=== PATIENT | female | born 2000 | race Caucasian/White ===

== ENCOUNTER 2021-03-23 15:10 | Observation (INO) | payer SELFPAY ==
[2021-03-23] VITALS (9 sets, daily range): BP systolic 75–121; BP diastolic 64–81; PULSE 93–127; BMI 35.8
--- NOTE | 2021-03-23 16:29 | OBADM ---
This patient, Radha Payne, admitted to the OB room OB Post [facility] for observation. Patient/family oriented to hospital policies and general routines including ID bracelet, bed and alarms, visiting hours, pain management, procedures, bathroom and other care routines, personal items, smoking policy, room service/diet, and visiting hours. Patient/Family are encouraged to report perceived risks to care and to ask questions if they do not understand what they are told or what they should do. Pt. received from EMS via stretcher. Pt. reports she has had R. abdominal pain since approx. 929 this a.m. Denies vaginal bleeding, LOF, contractions, and does report movement.
[2021-03-23 17:02] LABS: Add Urine Microscopic? NO; Appearance Urine Clear (Clear); Bilirubin Urine Negative (Negative); Blood Urine Negative (Negative); Color Urine Yellow (Yellow); Glucose Urine UA Negative (Negative); Ketones Urine Negative (Negative); Leukocyte Esterase Ur Negative LEU/UL (Negative); Nitrate Urine Negative (Negative); Protein Urine Negative (Negative); Specific Grav Ur 1.009 (1.001-1.035); Urobilinogen Urine Negative mg/dL (<2.0)
--- NOTE | 2021-03-26 00:17 | P.PNOB_ITS ---
OB - Triage/Final Diagnosis Visit Information Reason for evaluation: threatened labor Comments/Additional reasons for admission: I have assessed the risk for this patient, Radha Mayberry Shawanda Payne, and determined that she would benefit from observation care. Evaluation Laboratory results: Laboratory Tests 03/23/21 16:07 Urine Color Yellow Urine Appearance Clear Urine pH 8.0 Ur Specific [place] 1.009 Urine Protein Negative Urine Glucose (UA) Negative Urine Ketones Negative Ur Blood (Man) Negative Urine Nitrate Negative Urine Bilirubin Negative Urine Urobilinogen Negative Leukocyte Esterase Rfl Negative
== END 2021-03-23 18:22 | disposition home or self-care (01) ==
PROVIDERS: Admitting Provider Obstetrics & Gynecology; PCP Physician Assistant; Visit Provider Obstetrics & Gynecology
DX: O47.1 False labor at or after 37 completed weeks of gestation (principal); Z3A.28 28 weeks gestation of pregnancy
CPT/HCPCS: 81003; G0378; G0379

== ENCOUNTER 2021-05-22 10:38 | Outpatient (CLI) | payer MEDICAID, SELFPAY ==
--- NOTE | ~2021-05-22 | US_ITS ---
EXAMINATION: US OB BPP wo non-stress DATE: 05/22/2021 12:09 INDICATION: Hypertension. Third trimester. TECHNIQUE: Real-time pelvic ultrasound was performed. COMPARISON: None. FINDINGS: There is a single living fetus in vertex presentation. The placenta is fundal and posterior. h eart rate is 145 beats per minute (bpm). Biophysical profile performed by the technologist: breathing (30 sec sustained breathing in 30 minutes): 2 out of 2 movement (3 gross body movements in 30 minutes): 2 out of 2 tone (one episode of flwftfw-hgmfzijih-eklsevr limb movement): 2 out of 2 Amniotic fluid pocket (2 cm): 2 out of 2 Total score: 8 out of 8 IMPRESSION: 1. Single living fetus in vertex presentation. 2. Biophysical profile 8 out of 8. Reviewed, dictated and finalized at location B.
[2021-05-22 15:53] VITALS: BP 127/98; PULSE 113
== END 2021-05-22 10:39 | disposition home or self-care (01) ==
LOC: ANHOBOP 11:04
PROVIDERS: PCP Physician Assistant; Visit Provider Obstetrics & Gynecology
DX: O13.9 Gestational [pregnancy-induced] hypertension without significant proteinuria, unspecified trimester (principal); Z3A.00 Weeks of gestation of pregnancy not specified
CPT/HCPCS: 59025; 76819

== ENCOUNTER 2021-05-23 14:10 | Outpatient (CLI) | payer SELFPAY ==
[2021-05-23 14:31] VITALS: BP 131/91; PULSE 116
[2021-05-23 14:46] VITALS: BP 137/85; PULSE 109
[2021-05-23 14:52] LABS: Basophils Percent Auto 0.3 % (0.2-1.2); Eosinophils Absolute Auto 0.4 K/mm3 (0-0.3); Eosinophils Percent Auto 3.2 % (0-4.4); Hematocrit 33.9 % (37.0-47.0); Hemoglobin 11.5 g/dL (12.0-15.0); Immature Granulocyte Absolute 0.06 K/mm3 (0.00-0.031); Immature Granulocyte Percent A 0.5 % (0-0.5); Lymphocytes Percent Auto 18.8 % (18.3-44.2); Mean Corpuscular HGB Conc 33.9 g/dl (32-36); Mean Corpuscular Hemoglobin 32.6 pg (26-34); Mean Platelet Volume 10.6 fl (7.4-10.4); Monocytes Absolute Auto 0.8 K/mm3 (0.1-0.6); Monocytes Percent Auto 7.1 % (2.6-8.5); Neutrophils Absolute Auto 8.2 K/mm3 (1.3-6.7); Neutrophils Percent Auto 70.1 % (45.5-73.1); Platelet Count Result 273 k/mm3 (150-375); Red Blood Count 3.53 M/mm3 (4.2-5.4); Red Cell Distribution Width 12.1 % (11.5-14.5); White Blood Count 11.7 K/mm3 (4.5-10.0)
[2021-05-23 15:01] VITALS: BP 135/87; PULSE 107
[2021-05-23 15:06] LABS: Add Urine Microscopic? YES; Appearance Urine Cloudy (Clear); Bacteria Urine Trace /hpf; Bilirubin Urine Negative (Negative); Blood Urine Negative (Negative); Color Urine Yellow (Yellow); Glucose Urine UA Negative (Negative); Ketones Urine Negative (Negative); Leukocyte Esterase Ur Trace LEU/UL (NEGATIVE); Mucus Urine Rare /lpf; Nitrate Urine Negative (Negative); Protein Urine 1+ mg/dL (Negative); RBC Urine 0-2 /hpf (0-2); Specific Grav Ur 1.011 (1.001-1.035); Squamous Epithelial Cell Urine Many /hpf (Few); Urobilinogen Urine Negative mg/dL (<2.0)
[2021-05-23 15:09] LABS: Alanine Aminotransferase 34 U/L (4-35); Albumin Level 3.7 g/dL (3.7-5.6); Alkaline Phosphatase 208 U/L (45-116); Anion Gap 8 mmol/L (8-16); Aspartate Amino Transferase 31 U/L (14-36); Bilirubin,Total 0.5 mg/dL (0.2-1.3); Blood Urea Nitrogen 4 mg/dL (8-21); Calcium 9.6 mg/dL (8.9-10.7); Carbon Dioxide 20 mmol/L (22-30); Chloride 103 mmol/L (98-107); Estimated Glomerular Filt Rate > 60; Glucose 94 mg/dL (65-110); Potassium 4.1 mmol/L (3.4-5.0); Sodium 131 mmol/L (134-143); Uric Acid 4.2 mg/dL (3.0-5.9)
[2021-05-23 15:16] VITALS: BP 140/96; PULSE 100
[2021-05-23 15:16] LABS: Creatinine Urine 96.4 mg/dL; Total Protein Urine Random 24 mg/dL; Ur Ttl Prot Creatinine Ratio 0.25 mg/mg (0-0.20)
[2021-05-23 15:31] VITALS: BP 135/89; PULSE 107
--- NOTE | 2021-05-23 15:46 | PC.NURSE ---
1526- Called Dr. Brito office to speak with him regarding labs and BP's. Nany told me that Dr. Win is out of the office and she could take report on the patients labs and BP's. I was then transferred to Lalit Ford to speak with her about the patient. Informed her of labd and BP's, she gave orders to discharge the patient, i informed her that I would have to call Dr. López who is nutritionalist for Dr. Win.
--- NOTE | 2021-05-23 15:48 | PC.NURSE ---
1530- Spoke with Dr. López, informed of patient admission and BP's and Labs. Orders received for NST/BPP and repeat H labs to be drawn on Saturday05/26/2021. Dr. Garzon will be covering Dr. Win that day and she is aware of patient.
== END 2021-05-23 15:45 | disposition home or self-care (01) ==
LOC: ANHOBOP 14:15 → ANHOBPP 14:16
PROVIDERS: PCP Physician Assistant; Visit Provider Obstetrics & Gynecology
DX: O13.9 Gestational [pregnancy-induced] hypertension without significant proteinuria, unspecified trimester (principal); Z3A.00 Weeks of gestation of pregnancy not specified
CPT/HCPCS: 36415; 59025; 80053; 81001; 82570; 84156; 84550; 85025; 87086; 87088; 99199

== ENCOUNTER 2021-05-26 09:57 | Outpatient (CLI) | payer MEDICAID, SELFPAY ==
--- NOTE | ~2021-05-26 | US_ITS ---
EXAMINATION: US OB BPP wo non-stress DATE: 05/26/2021 11:18 INDICATION: Hypertension in . Third trimester. TECHNIQUE: Real-time pelvic ultrasound was performed. COMPARISON: Ultrasound 05/22/2021 FINDINGS: There is a single living fetus in vertex presentation. The placenta is on the left. heart rate is 124 beats per minute (bpm). Biophysical profile performed by the technologist: breathing (30 sec sustained breathing in 30 minutes): 2 out of 2 movement (3 gross body movements in 30 minutes): 2 out of 2 tone (one episode of senxdtt-fvhsvrxdy-cnwzpwr limb movement): 2 out of 2 Amniotic fluid pocket (2 cm): 2 out of 2 Total score: 8 out of 8 IMPRESSION: 1. Single living fetus in vertex presentation. 2. Biophysical profile 8 out of 8. Reviewed, dictated and finalized at location B.
[2021-05-26 10:18] VITALS: BP 128/92; PULSE 100
[2021-05-26 10:30] VITALS: BP 130/101; PULSE 89
[2021-05-26 10:45] VITALS: BP 124/65; PULSE 89
[2021-05-26 10:46] VITALS: BP 124/65; PULSE 89
[2021-05-26 10:52] LABS: Basophils Percent Auto 0.4 % (0.2-1.2); Eosinophils Absolute Auto 0.4 K/mm3 (0-0.3); Eosinophils Percent Auto 3.3 % (0-4.4); Hematocrit 34.2 % (37.0-47.0); Hemoglobin 11.1 g/dL (12.0-15.0); Immature Granulocyte Absolute 0.05 K/mm3 (0.00-0.031); Immature Granulocyte Percent A 0.5 % (0-0.5); Lymphocytes Percent Auto 20.9 % (18.3-44.2); Mean Corpuscular HGB Conc 32.5 g/dl (32-36); Mean Corpuscular Volume 98.6 fl (80-100); Monocytes Absolute Auto 0.7 K/mm3 (0.1-0.6); Monocytes Percent Auto 6.9 % (2.6-8.5); Neutrophils Absolute Auto 7.2 K/mm3 (1.3-6.7); Platelet Count Result 238 k/mm3 (150-375); Red Blood Count 3.47 M/mm3 (4.2-5.4); Red Cell Distribution Width 12.1 % (11.5-14.5); White Blood Count 10.5 K/mm3 (4.5-10.0)
[2021-05-26 11:05] LABS: Alanine Aminotransferase 43 U/L (4-35); Albumin Level 3.5 g/dL (3.7-5.6); Alkaline Phosphatase 210 U/L (45-116); Anion Gap 7 mmol/L (8-16); Aspartate Amino Transferase 48 U/L (14-36); Bilirubin,Total 0.6 mg/dL (0.2-1.3); Blood Urea Nitrogen 5 mg/dL (8-21); Calcium 9.8 mg/dL (8.9-10.7); Carbon Dioxide 22 mmol/L (22-30); Chloride 103 mmol/L (98-107); Estimated Glomerular Filt Rate > 60; Glucose 81 mg/dL (65-110); Potassium 3.9 mmol/L (3.4-5.0); Sodium 132 mmol/L (134-143); Uric Acid 4.1 mg/dL (3.0-5.9)
[2021-05-26 11:08] LABS: Creatinine Urine 84.2 mg/dL; Total Protein Urine Random 20 mg/dL; Ur Ttl Prot Creatinine Ratio 0.24 mg/mg (0-0.20)
--- NOTE | 2021-05-26 11:28 | PC.NURSE ---
Dr. López informed of BP's 128/92, 130/101 after entering room with lab draw tray- pt states she doesn't like needles, and follow up BP 124/65. Informed of lab results including elevation in ALT and AST. Pt denies headache, visual disturbance, epigastric/RUQ pain, some swelling in feet which pt states is less than it was, and DTR's 1+ and no clonus. Informed NST reactive and BPP 05/14. OK to discharge to home with preeclampsia precautions and return Saturday for repeat NST, BPP, and labs.
== END 2021-05-26 13:00 | disposition home or self-care (01) ==
LOC: ANHOBOP 10:03 → ANHOBPP 10:04
PROVIDERS: Obstetrics & Gynecology; PCP Physician Assistant; Visit Provider Obstetrics & Gynecology
DX: O13.9 Gestational [pregnancy-induced] hypertension without significant proteinuria, unspecified trimester (principal); Z3A.00 Weeks of gestation of pregnancy not specified
CPT/HCPCS: 36415; 76819; 80053; 82570; 84156; 84550; 85025; 99199

== ENCOUNTER 2021-05-30 10:09 | Outpatient (CLI) | payer MEDICAID, SELFPAY ==
--- NOTE | ~2021-05-30 | US_ITS ---
EXAMINATION: US OB BPP wo non-stress DATE: 05/30/2021 11:34 INDICATION: Hypertension during third trimester . TECHNIQUE: Real-time pelvic ultrasound was performed. The interpreting radiologist was not present fo r the study. COMPARISON: None. FINDINGS: There is a single living fetus in vertex presentation. The placenta is fundal. heart rate is 1 45 beats per minute (bpm). Biophysical profile performed by the technologist: breathing (30 sec sustained breathing in 30 minutes): 0 out of 2 movement (3 gross body movements in 30 minutes): 2 out of 2 tone (one episode of dciwhau-heonuahdd-eobnlea limb movement): 2 out of 2 Amniotic fluid pocket (2 cm): 2 out of 2 Total score: 6 out of 8 IMPRESSION: 1. Single living fetus in vertex presentation with heart rate of 145 bpm. 2. Biophysical profile 6 out of 8 with no points given for 30 seconds of observed sustained br eathing over 30 minutes of observation. Reviewed, dictated and finalized at location B. IMPRESSION: 1. Single living fetus in vertex presentation with heart rate of 145 bpm. 2. Biophysical profile 6 out of 8 with no points given for 30 seconds of obser patricia sustained breathing over 30 minutes of observation.
[2021-05-30 10:31] VITALS: BP 129/84; PULSE 93
[2021-05-30 10:37] LABS: Basophils Absolute Auto 0.1 K/mm3 (0.0-0.1); Basophils Percent Auto 0.5 % (0.2-1.2); Eosinophils Absolute Auto 0.4 K/mm3 (0-0.3); Eosinophils Percent Auto 3.4 % (0-4.4); Hematocrit 33.3 % (37.0-47.0); Immature Granulocyte Absolute 0.05 K/mm3 (0.00-0.031); Immature Granulocyte Percent A 0.4 % (0-0.5); Lymphocytes Absolute Auto 2.65 K/mm3 (0.9-3.2); Lymphocytes Percent Auto 22.8 % (18.3-44.2); Mean Corpuscular Volume 96.8 fl (80-100); Mean Platelet Volume 11.2 fl (7.4-10.4); Monocytes Absolute Auto 0.9 K/mm3 (0.1-0.6); Monocytes Percent Auto 7.8 % (2.6-8.5); Neutrophils Absolute Auto 7.6 K/mm3 (1.3-6.7); Neutrophils Percent Auto 65.1 % (45.5-73.1); Platelet Count Result 258 k/mm3 (150-375); Red Blood Count 3.44 M/mm3 (4.2-5.4); White Blood Count 11.6 K/mm3 (4.5-10.0)
[2021-05-30 10:46] VITALS: BP 131/84; PULSE 103
[2021-05-30 10:49] VITALS: BP 131/84; PULSE 106
[2021-05-30 10:50] LABS: Creatinine Urine 58.1 mg/dL; Total Protein Urine Random 30 mg/dL; Ur Ttl Prot Creatinine Ratio 0.52 mg/mg (0-0.20)
[2021-05-30 10:55] LABS: Alanine Aminotransferase 31 U/L (4-35); Albumin Level 3.6 g/dL (3.7-5.6); Alkaline Phosphatase 212 U/L (45-116); Anion Gap 8 mmol/L (8-16); Aspartate Amino Transferase 30 U/L (14-36); Bilirubin,Total 0.5 mg/dL (0.2-1.3); Blood Urea Nitrogen 5 mg/dL (8-21); Calcium 9.8 mg/dL (8.9-10.7); Carbon Dioxide 20 mmol/L (22-30); Chloride 103 mmol/L (98-107); Estimated Glomerular Filt Rate > 60; Glucose 92 mg/dL (65-110); Sodium 131 mmol/L (134-143); Uric Acid 3.7 mg/dL (3.0-5.9)
== END 2021-05-30 11:40 | disposition home or self-care (01) ==
LOC: ANHOBOP 10:14 → ANHLDR 10:16
PROVIDERS: Obstetrics & Gynecology; PCP Physician Assistant; Visit Provider Obstetrics & Gynecology
DX: O13.9 Gestational [pregnancy-induced] hypertension without significant proteinuria, unspecified trimester (principal)
CPT/HCPCS: 36415; 59025; 76819; 80053; 82570; 84156; 84550; 85025; 99199

== ENCOUNTER 2021-06-02 07:03 | Inpatient (IN) | payer MEDICAID, SELFPAY ==
[2021-06-02] VITALS (54 sets, daily range): BP systolic 111–146; BP diastolic 57–99; PULSE 62–111; RESP 16; TEMP 36.3–36.8; O2SAT 96–100; BMI 39.9
--- NOTE | 2021-06-02 07:44 | LDADM ---
This patient, Radha Payne, was admitted to Labor/Delivery/Recovery 119 on 06/02/21 at 07:03. Plans for labor, pain management and were discussed with patient. Patient/family oriented to hospital policies and general routines including ID bracelet, bed and alarms, visiting hours, pain management, procedures, bathroom and other care routines, personal items, smoking policy, room service/diet and guest tray routines, infant security routines, and visiting hours. Patient/Family are encouraged to report perceived risks to care and to ask questions if they do not understand what they are told or what they should do. See OBIX for further documentation.
[2021-06-02] MEDS: LACTATED RINGERS 1,000 ML 125 ML IV CONT ×2 (07:50→09:38)
[2021-06-02 07:54] LABS: Basophils Percent Auto 0.3 % (0.2-1.2); Eosinophils Absolute Auto 0.3 K/mm3 (0-0.3); Eosinophils Percent Auto 2.6 % (0-4.4); Hematocrit 33.6 % (37.0-47.0); Hemoglobin 11.4 g/dL (12.0-15.0); Immature Granulocyte Absolute 0.09 K/mm3 (0.00-0.031); Immature Granulocyte Percent A 0.8 % (0-0.5); Lymphocytes Absolute Auto 2.27 K/mm3 (0.9-3.2); Lymphocytes Percent Auto 19.4 % (18.3-44.2); Mean Corpuscular HGB Conc 33.9 g/dl (32-36); Mean Corpuscular Hemoglobin 32.2 pg (26-34); Mean Corpuscular Volume 94.9 fl (80-100); Mean Platelet Volume 10.9 fl (7.4-10.4); Monocytes Absolute Auto 0.8 K/mm3 (0.1-0.6); Monocytes Percent Auto 7.2 % (2.6-8.5); Neutrophils Absolute Auto 8.2 K/mm3 (1.3-6.7); Neutrophils Percent Auto 69.7 % (45.5-73.1); Platelet Count Result 249 k/mm3 (150-375); Red Blood Count 3.54 M/mm3 (4.2-5.4); Red Cell Distribution Width 11.9 % (11.5-14.5); White Blood Count 11.7 K/mm3 (4.5-10.0)
--- NOTE | 2021-06-02 07:57 | P.PNAN_ITS ---
Anes - Initial Pre Proc Eval Procedure: Operation Date: 06/02/21 09:00 Proposed Procedures p Section - Carroll Win MD Date/Time: 06/02/21 07:57 Surgeon: Carroll Win MD Pre Op Diagnosis: C/S Patient Data Age: 20 Gender: F Height: 1.55 m Weight: 96 kg Last Vital Signs Pulse 88 06/02/21 07:46 BP 139/95 H 06/02/21 07:46 Allergies Allergy/AdvReac Type Severity Reaction Status Date / Time No Known Allergies Allergy Verified 05/11/21 13:21 Home Medications Medication Instructions Recorded Confirmed Type 1 tablet PO DAILY 03/23/21 05/23/21 History aspirin 81 mg PO DAILY 03/23/21 06/02/21 History folic acid 1 mg PO DAILY 03/23/21 06/02/21 History progesterone micronized 200 mg PO DAILY 03/23/21 05/23/21 History Laboratory Tests 06/02/21 06/02/21 07:37 07:37 WBC Pending RBC Pending Hgb Pending Hct Pending MCV Pending MCH Pending MCHC Pending RDW Pending Plt Count Pending MPV Pending Immature Gran % (Auto) Pending Neut % (Auto) Pending Lymph % (Auto) Pending [place] % (Auto) Pending Eos % (Auto) Pending Baso % (Auto) Pending Lymph # (Auto) Pending [place] # (Auto) Pending Eos # (Auto) Pending Baso # (Auto) Pending Abs Immat Gran (auto) Pending Absolute Neuts (auto) Pending Absolute Nucleated RBC Pending Nucleated RBC % Pending RPR Pending Patient hx anesthesia problems: none Family hx anesthesia problems: none PMFSH Family History Family History (Updated 05/11/21 @ 13:23 by Giuseppe Jo RN) Other No pertinent family history Social History Social History Smoking status: Never smoker Substance use: never Gender identity (if verbalized by the patient): Female Spiritual care concerns: No Anes - Eval Final PreProcedure Day of Procedure 06/02/21 07:57 Patient weight: morbidly obese Heart: regular rate and rhythm Lungs: clear to auscultation and normal air movement Airway: Mallampati scale class II Neurological: alert and oriented Last oral intake: >/= 8 hours ASA classification: III Emergent: no Anesthetic plan: proceed Anesthesia type and monitoring: regional spinal and standard monitoring Informed Consent: The patient's anesthetic plan and its attendant risks and benefits were discussed with the patient/family/POA. Questions were solicited and answers provided to the satisfaction of the patient/family/POA.
--- NOTE | 2021-06-02 08:54 | PM.IMHP ---
H&P: HPI History of Present Illness Date/Time: 06/02/21 08:54 20 y/o F presenting for primary elective for macrosomia estimated weight greater than 4500 g currently at 39w. c/b MTHFR, BV, rubella and varicella not immune, anxiety, large for gestational age fetus, PIH. Seeing MFM for LGAF, US performed on 05/15/21 revealed estimated weight greater than 4300 g Pt had NST/BPP on 05/22 I explained her condition the procedure and the risks involved including but not limited to bleeding infection injury to bladder bowel baby pelvic vessels DVT pneumonia wound infection UTI the risk of anesthesia risk of hemorrhage shoulder dystocia. She understands accepts and agrees to proceed informed consent obtained. Chief Complaint: Term macrosomia estimated weight greater than 4500 g Cephalopelvic disproportion Elective primary Review of Systems Review of Systems: All systems reviewed & are unremarkable except as noted in HPI and below Constitutional: Constitutional: Reports no additional constitutional complaints Eyes: Eyes: Reports no additional eye complaints ENT: Reports system reviewed and no additional complaints, except as documented Cardiovascular: Cardiovascular: Reports no additional cardiovascular complaints Respiratory: Respiratory: Reports no additional respiratory complaints Gastrointestinal: Gastrointestinal: Reports no additional gastrointestinal complaints Genitourinary: Genitourinary: Reports no additional female genitourinary complaints Musculoskeletal: Musculoskeletal: Reports no additional musculoskeletal complaints Integumentary/Breasts: Skin/Breast: Reports system reviewed and no additional complaints, except as docu Neurologic: Reports system reviewed and no additional complaints, except as documented Psychiatric: Psychiatric: Reports no additional psychiatric complaints Endocrine: Endocrine: Reports no additional endocrine complaints Hematologic/Lymphatic: Hematologic/Lymphatic: Reports no additional hematologic/lymphatic complaints Allergic/Immunologic: Allergic/Immunologic: Reports no additional allergic/immunologic complaints [facility] Past Medical History Medical History (Updated 06/02/21 @ 09:04 by Carroll Win MD) Bacterial vaginosis in Cephalopelvic disproportion macrosomia Generalized anxiety disorder Glucose tolerance test abnormal Normal 3 hour glucose tolerance test Heterozygous MTHFR mutation [id number] Maternal varicella, non-immune Obesity induced hypertension PTSD (post-traumatic stress disorder) Rubella non-immune status, antepartum Family History Family History Other No pertinent family history Social History Social History (Updated 06/02/21 @ 09:02 by Carroll Win MD) Smoking status: Never smoker Alcohol intake: never Substance use: never Substance use type: does not use Living arrangements: with family Occupation/Education: unemployed Gender identity (if verbalized by the patient): Female Sexual Orientation (if Verbalized by the Patient): Straight or Heterosexual Spiritual care concerns: No Agree to blood products: Yes Meds Home Medications and Allergies Home Medications Medication Instructions Recorded Confirmed Type 1 tablet PO DAILY 03/23/21 05/23/21 History aspirin 81 mg PO DAILY 03/23/21 06/02/21 History folic acid 1 mg PO DAILY 03/23/21 06/02/21 History progesterone micronized 200 mg PO DAILY 03/23/21 05/23/21 History Allergies Allergy/AdvReac Type Severity Reaction Status Date / Time No Known Allergies Allergy Verified 05/11/21 13:21 Vital Signs Vital Signs - 24 hr 06/02/21 07:22 06/02/21 07:30 06/02/21 07:46 Pulse Rate 98 102 H 88 Blood Pressure 133/88 138/89 139/95 H Exam Const: General: cooperative, healthy appearing, comfortable, no ac
--- NOTE | 2021-06-02 08:56 | P.HPUP_ITS ---
History and Physical Update Update Date/Time: 06/02/21 08:56 History and Physical has been reviewed, including an updated exam of the patient. There are NO changes in the patient's condition. Risks, benefits, and alternatives have been discussed and questions answered. Patient agrees to proceed with procedure. 20 y/o F presenting for primary elective for macrosomia estimated weight greater than 4500 g currently at 39w. c/b M THFR, BV, rubella and varicella not immune, anxiety, large for gestational age fetus, PIH. Seeing MFM for LGAF, US performed on 05/15/21 revealed estimated weight greater than 4300 g Pt had NST/BPP on 05/22 I explained her condition the procedure and the risks involved including but not limited to bleeding infection injury to bladder bowel baby pelvic vessels DVT pneumonia wound infection UTI the risk of anesthesia risk of hemorrhage shoulder dystocia. She understands accepts and agrees to proceed informed consent obtained.
--- NOTE | 2021-06-02 08:57 | P.HP_ITS ---
Obstetrics - Admit Note Admission Note: record reviewed. No pertinent additions to the history and/or any subsequent changes in the physical findings that are not consistent with the expected course of the were found. Additions to the history and/or subsequent changes in the physical findings follow. None. 20 y/o F presenting for primary elective for macrosomia estimated weight greater than 4500 g currently at 39w. c/b MTHFR, BV, rubella and varicella not immune, anxiety, large for gestational age fetus, PIH. Seeing MFM for LGAF, US performed on 05/15/21 revealed estimated weight greater than 4300 g Pt had NST/BPP on 05/22 I explained her condition the procedure and the risks involved including but not limited to bleeding infection injury to bladder bowel baby pelvic vessels DVT pneumonia wound infection UTI the risk of anesthesia risk of hemorrh age shoulder dystocia. She understands accepts and agrees to proceed informed consent obtained.
[2021-06-02] MEDS: KETOROLAC 30 MG/ML VIAL (*BKC) IV PUSH (10:40)
[2021-06-02] MEDS: MORPHINE SULFATE (*CRX) 2 MG/ML INJ IV PUSH (11:43)
[2021-06-02] MEDS: diphenhydrAMINE HCl INJ 50 MG/ML VIAL 12.5 MG IV PUSH (12:03)
[2021-06-02] MEDS: OXYTOCIN 30 UNITS/NS 500 ML 30 UNITS/500 ML BAG 125 UNITS IV CONT (13:06)
--- NOTE | 2021-06-02 13:28 | PM.OBPRVD ---
OB - Delivery Note Procedure Delivery date: 06/02/21 Procedure: Procedures Operation Date: 06/02/21 09:00 Actual Procedure Side Surgeon p Section Carroll Win MD Intrapartal events: Ceph-Pelvic Disproportion Induction method: none Delivery monitor: external FHT and external uterine Route of delivery: Episiotomy description: None Laceration Description: None Specimen: Yes Quantitative Blood Loss (ml): 695 Anesthesia type: Spinal Disposition: floor Complications: none [place] Baby Date of : 06/02/21 Time of : 10:34 Weeks of gestation at delivery: 40 gender: Female (opal) Weight (pounds): 9 Weight (ounces): 3 presentation: vertex position: Left Occiput Anterior Placenta delivery description: Manual Removal and Normal Configuration cord vessel description: 3 Vessels score one minute: 8 score five minutes: 9 Twins 1: gender: Female ([place])
--- NOTE | 2021-06-02 13:33 | W.PM.PROC2 ---
Procedure Note - Detailed Date of Procedure 06/02/21 Pre-op Diagnosis Term macrosomia Cephalopelvic disproportion Elective primary section MTHFR -induced hypertension Obesity Generalized anxiety disorder Rubella and varicella nonimmune Post-op Diagnosis same (Term delivered macrosomia Cephalopelvic disproportion Elective primary section MTHFR -induced hypertension Obesity Generalized anxiety disorder Rubella and varicella nonimmune) Procedure Performed Primary low-transverse section with delivery of viable female and placenta Surgeon Carroll Win MD Airframe Design Engineer Surgical assistance x2 Anesthesia spinal Indications macrosomia with cephalopelvic disproportion Findings Viable female infant named sweetie delivered at 10:34 a.m. on 06/02/2021 scores 8 9 weight 9 lb 3 oz 4180 g length 20-1/2 inches taken to the nursery in stable condition normal exam normal transition Normal uterus tubes and ovaries Hemostasis excellent VTE prevention SCDs Antibiotic prophylaxis Ancef 3 g Procedure performed OR room 1. Counts correct Complications none Specimens to pathology cord gases cord blood and placenta QBL 695 Description of Procedure Informed consent obtained the patient was taken to the operating room where spinal anesthetic was administered in the sitting position and the patient was then laid down into the supine position where Rojas catheter was inserted and then her abdomen was prepped and then draped in the usual sterile fashion. A time-out was performed and confirmed. After testing for adequate anesthesia, a Pfannenstiel incision was made to the skin and the abdomen was opened in layers hemostasis obtained by cauterization Heber's fascia was entered bilaterally abdominal wall fascia was entered bilaterally fascia was then undermined inferior and superior after which the rectus muscles were the midline. Peritoneum was entered with electrocautery and extended inferior and superior the vesicouterine peritoneal reflection was incised transversely. A transverse incision was then made to the uterus and the uterus was entered digitally with rupture membranes revealing clear fluid the uterine incision was digitally dissected bilaterally and then the vertex was then delivered via the abdominal incision with a nuchal cord x1 reduced upon delivery the shoulders were delivered without difficulty and the infant was delivered into the maternal abdomen where the cord was clamped and cut nose throat bulb suction spontaneous respirations and cry infant was handed to the nursery nurse in attendance. scores given 8 9 weight 9 lb 3 oz given skin to skin contact with mom and then taken to the nursery in stable condition with the father the baby. Cord gases were obtained and cord blood was obtained the placenta was then delivered intact with a three-vessel cord manually. The uterus was externalized blood clots membranes removed from the intrauterine cavity the uterus contracted well with Pitocin given intravenously and 10 units into the myometrium. The uterine incision was then repaired in 2 layers with 0 Vicryl in a running interlocking fashion the 2nd being an imbricating stitch. Blood clots removed from the cul-de-sac and both lateral margins and then the sponge needle and instrument counts were correct anterior peritoneum and rectus muscles reapproximated midline with 0 Vicryl suture in a running fashion. Heber's fascia was then reapproximated with 2. Quill S RS system bilaterally and the sub cutaneous space was closed the Heber's fascia was 3 0 plain in a running fashion and then the skin was closed with Insorb absorbable staple system. Dermabond was used to the skin and then Mepilex dressing was placed over the incision. Patient tolerated the procedure well was taken to the recovery room stable condition. Mom and baby were in stable con
--- NOTE | 2021-06-02 14:15 | PC.NURSE ---
Mother called out for assist with feeding. Mother reports infant has been eagerly latching and questions why infant is wanting to feed so frequently. Reviewed infants feed every 1-3 hours the first days, may feed on or both breast to satisfaction. Infant is able to freely thrust tongue past gum ridge and flange both lips. Skin is intact on both nipples, no redness and bruising noted. Reviewed feeding cues, frequencies, duration of feedings, feeding elimination flow sheet, and signs of adequate intake. Demonstrated stimulation techniques to wake infant for feeding. Assisted with infant to breast. Reviewed positioning/alignment in cross cradle, holding breast in ?U? hold and guided asymmetrical latch on. Discussed rational for each. Infant able to latch correctly. Reviewed signs of a correct latch, effective nursing and suck swallow ratio. nursed eagerly, with steady draws and frequent swallowing noted. Reviewed the difference of effective vs ineffective nursing. Suggested mother stimulate while feeding to increase stimulation, increase intake and to assist with maintaining deep latch. Infant was able to maintain latch without discomfort to mother. Demonstrated how to adjust latch more deeply while feeding if needed. Nipple care reviewed of lanolin after feedings, warm compresses as needed.
--- NOTE | 2021-06-02 14:40 | PC.NURSE ---
Assisted with positioning/alignment due to C/S, mother independently switched infant to other breast.
[2021-06-02] MEDS: LORATADINE 10 MG TABLET PO (16:33)
[2021-06-02] MEDS: CARBOPROST TROMETHAMINE 250 MCG/ML AMPUL IM (17:08)
[2021-06-02] MEDS: DEXTROSE 5%/0.45% SOD CHL 1,000 ML 125 ML IV CONT (17:21)
[2021-06-02] MEDS: HYDROcodone/acetaminophen (*CRX) 5-325 MG TABLET 1 TAB PO (18:35)
[2021-06-02] MEDS: METHYLERGONOVINE MALEATE 0.2 MG TABLET PO (18:36)
[2021-06-02] MEDS: ONDANSETRON INJ 4 MG/2 ML VIAL IV PUSH (18:36)
--- NOTE | 2021-06-02 19:26 | PC.NURSE ---
1335-Patient transferred to post room #287 via stretcher. Support person present. Oriented to unit, room, information board, rooming in, admission packet and security measures. Patient verbalizes understanding.
--- NOTE | 2021-06-02 20:07 | PC.NURSE ---
1630 - PP RN called L & D charge nurse regarding excessive bleeding and clots in patient's uterus; L & D RN arrived in patient's room at 1635. Clots were manually expressed from uterus and contact was made to Dr. Win. Orders were given to PP RN and appropriate meds administered.
[2021-06-03] VITALS: BP 118/70; PULSE 104; RESP 16; TEMP 36.7; O2SAT 99
[2021-06-03] MEDS: NYSTATIN OINTMENT 15 GM TUBE 1 APPLIC TOPICAL ×3 (00:11→23:18)
[2021-06-03] MEDS: METHYLERGONOVINE MALEATE 0.2 MG TABLET PO ×4 (00:11→18:51)
[2021-06-03 05:00] VITALS: BP 124/77; PULSE 108; RESP 16; TEMP 36.8; O2SAT 99
[2021-06-03 06:15] LABS: Basophils Percent Auto 0.2 % (0.2-1.2); Eosinophils Absolute Auto 0.2 K/mm3 (0-0.3); Eosinophils Percent Auto 1.1 % (0-4.4); Hematocrit 26.9 % (37.0-47.0); Immature Granulocyte Absolute 0.07 K/mm3 (0.00-0.031); Immature Granulocyte Percent A 0.5 % (0-0.5); Lymphocytes Absolute Auto 1.32 K/mm3 (0.9-3.2); Lymphocytes Percent Auto 9.4 % (18.3-44.2); Mean Corpuscular HGB Conc 33.5 g/dl (32-36); Mean Corpuscular Hemoglobin 32.4 pg (26-34); Mean Corpuscular Volume 96.8 fl (80-100); Mean Platelet Volume 11.1 fl (7.4-10.4); Monocytes Absolute Auto 1.2 K/mm3 (0.1-0.6); Monocytes Percent Auto 8.7 % (2.6-8.5); Neutrophils Absolute Auto 11.2 K/mm3 (1.3-6.7); Neutrophils Percent Auto 80.1 % (45.5-73.1); Platelet Count Result 202 k/mm3 (150-375); Red Blood Count 2.78 M/mm3 (4.2-5.4); Red Cell Distribution Width 11.9 % (11.5-14.5)
[2021-06-03] MEDS: IBUPROFEN 600 MG TABLET PO ×3 (06:35→18:51)
--- NOTE | 2021-06-03 07:59 | PM.OBPNVD ---
OB - PN: Subj Subjective Date/time seen: 06/03/21 07:59 Patient comments: no complaints, pain well controlled, incisional pain, tolerating diet and flatus present baby status: doing well [place] feeding status: breast and bottle feeding OB - PN: Obj Data Labs CBC & Chem 7: 06/03/21 05:02 Labs: Laboratory Results - last 24 hr 06/02/21 06/02/21 06/03/21 07:37 07:37 05:02 WBC 11.7 H 14.0 H RBC 3.54 L 2.78 L Hgb 11.4 L 9.0 L Hct 33.6 L 26.9 L MCV 94.9 96.8 MCH 32.2 32.4 MCHC 33.9 33.5 RDW 11.9 11.9 Plt Count 249 202 MPV 10.9 H 11.1 H Immature Gran % (Auto) 0.8 H 0.5 Neut % (Auto) 69.7 80.1 H Lymph % (Auto) 19.4 9.4 L Bell % (Auto) 7.2 8.7 H Eos % (Auto) 2.6 1.1 Baso % (Auto) 0.3 0.2 Lymph # (Auto) 2.27 1.32 Bell # (Auto) 0.8 H 1.2 H Eos # (Auto) 0.3 0.2 Baso # (Auto) 0.0 0.0 Abs Immat Gran (auto) 0.09 H 0.07 H Absolute Neuts (auto) 8.2 H 11.2 H Absolute Nucleated RBC 0.0 0.0 Nucleated RBC % 0.0 0.0 Blood Type A Positive Antibody Screen Negative OB - PN A/P Assessment and Plan (1) Term delivered: Code(s): O80 - Encounter for full-term uncomplicated delivery Status: Acute (2) Delivery by elective section: Code(s): O82 - Encounter for delivery without indication Status: Acute (3) Cephalopelvic disproportion: Code(s): O33.9 - Maternal care for disproportion, unspecified Status: Acute (4) macrosomia: Code(s): O36.60X0 - Maternal care for excessive growth, unspecified trimester, not applicable or unspecified Status: Acute (5) Heterozygous MTHFR mutation C677T: Code(s): Z15.89 - Genetic susceptibility to other disease Status: Acute (6) Anemia: Code(s): D64.9 - Anemia, unspecified Status: Acute Assessment and Plan: [place] Time Spent With Patient Time: Total time spent is greater than 50% in coordination of care (as documented) at patient's floor/unit and/or counseling patient: Had uterine atony was given Hemabate and then Methergine ongoing bleeding controlled hemoglobin 9 hematocrit 28 stable no further bleeding Review of Systems Review of Systems: All systems reviewed & are unremarkable except as noted in HPI and below Exam Const: General: cooperative, healthy appearing, comfortable, no acute distress, well developed, alert and awake Nutritional Appearance: average body habitus and obese Orientation/consciousness: patient oriented x3 Limitations: no limitations HENMT: Head: normal to inspection Eyes: General: appearance normal, both eyes and all related structures Neck: Neck: normal visual inspection Chest: Chest palpation & inspection: normal inspection of the chest Breast/axilla inspection: normal inspection of the breasts Resp: Effort & Inspection: normal respiratory effort Auscultation: clear to auscultation bilaterally Cardio: Rate: regular rate Rhythm: regular rhythm GI: Inspection: normal to inspection and incision (ddi) GI Palp: Yes Soft to palpation Percussion: Yes normal to percussion Auscultation: normal bowel sounds : External Female Exam: normal external appearance Bimanual exam- vagina & uterus: non-tender Urinary Catheter: Urinary Catheter: patent and draining and urine clear Back/Spine/Pelvis: Back: no CVA tenderness Skin: General skin exam: normal color Neuro: General: patient oriented x3, gait normal, tone normal, moves all extremities, Normal light touch and pain sensation, no meningeal signs and no focal motor deficits Extrem: General: normal to inspection and full ROM Psych: Appearance: grossly normal Mental Status: mental status grossly normal Speech and movement: Normal speech and movement present Affect: normal affect Attitude: cooperative Thought process: Normal thought process present Thought content: Yes Normal thought c
[2021-06-03 08:30] VITALS: BP 126/78; PULSE 120; RESP 18; TEMP 37; O2SAT 100
[2021-06-03] MEDS: POLYSACCHARIDE IRON COMPLEX 150 MG CAPSULE PO ×2 (08:56→15:54)
[2021-06-03] MEDS: MULTIVIT/MIN/PREN/FOL AC/IRON TABLET 1 TAB PO (08:56)
[2021-06-03] MEDS: HYDROcodone/acetaminophen (*CRX) 5-325 MG TABLET 1 TAB PO ×4 (08:57→23:18)
[2021-06-03] MEDS: DOCUSATE SODIUM 100 MG CAPSULE PO ×2 (08:57→15:53)
--- NOTE | 2021-06-03 12:00 | WPDANLDPN2 ---
Anes-Prog Note L&D Date/Time: 06/03/21 12:00 Comfortable throughout: section Neuraxial method: spinal Epidural/Spinal procedure site: tender Neuro status: Neuro function grossly intact. Vital Signs: Last Vital Signs Temp 98.6 F 06/03/21 08:30 Pulse 120 H 06/03/21 08:30 Resp 18 06/03/21 08:30 BP 126/78 06/03/21 08:30 Pulse Ox 100 06/03/21 08:30 Pain score (VAS): 3/10 I/O: Intake & Output 06/02/21 06/03/21 06/03/21 23:59 07:59 15:59 Intake Total 340 2200 Output Total 669 5717 153 Balance -516 -8083 -720 Post-procedural complaints: pruritis moderate, treatment effective Patient feedback: Patient satisfied with anesthetic care.
--- NOTE | 2021-06-03 12:03 | WPDANLDNPN2 ---
Anes-Prog Note L&D-Neuraxial Date/Time: 06/03/21 12:03 Neuraxial medications: intrathecal PF morphine Opiod-related complaints: pruritis moderate, treatment effective Patient feedback: Patient satisfied with post-operative pain management.
[2021-06-03 20:00] VITALS: BP 123/74; PULSE 100; RESP 16; TEMP 36.7; O2SAT 100
[2021-06-04] MEDS: IBUPROFEN 600 MG TABLET PO ×4 (01:10→18:56)
[2021-06-04] MEDS: METHYLERGONOVINE MALEATE 0.2 MG TABLET PO ×4 (01:10→18:56)
[2021-06-04 07:15] VITALS: BP 124/87; PULSE 101; RESP 16; TEMP 37.1; O2SAT 100
[2021-06-04] MEDS: MEASLES,MUMPS,RUBELLA VACCINE 0.5 ML VIAL SUB-Q (07:21)
[2021-06-04] MEDS: POLYSACCHARIDE IRON COMPLEX 150 MG CAPSULE PO ×2 (07:23→16:24)
[2021-06-04] MEDS: DOCUSATE SODIUM 100 MG CAPSULE PO ×2 (07:23→16:24)
[2021-06-04] MEDS: HYDROcodone/acetaminophen (*CRX) 5-325 MG TABLET 1 TAB PO ×4 (07:24→18:56)
[2021-06-04] MEDS: NYSTATIN OINTMENT 15 GM TUBE 1 APPLIC TOPICAL ×2 (07:45→18:56)
--- NOTE | 2021-06-04 08:45 | PM.OBPNVD ---
OB - PN: Subj Subjective Date/time seen: 06/04/21 08:45 Patient comments: no complaints, pain well controlled, incisional pain, tolerating diet and flatus present baby status: doing well and nursing well [place] feeding status: breast and bottle feeding OB - PN: Obj Data Labs CBC & Chem 7: 06/03/21 05:02 OB - PN A/P Assessment and Plan (1) Term delivered: Code(s): O80 - Encounter for full-term uncomplicated delivery Status: Acute (2) Delivery by elective section: Code(s): O82 - Encounter for delivery without indication Status: Acute (3) Maternal varicella, non-immune: Code(s): O09.899 - Supervision of other high risk pregnancies, unspecified trimester; Z28.3 - Underimmunization status Status: Acute (4) Rubella non-immune status, antepartum: Code(s): O99.891 - Other specified diseases and conditions complicating ; Z28.3 - Underimmunization status Status: Acute (5) Cephalopelvic disproportion: Code(s): O33.9 - Maternal care for disproportion, unspecified Status: Acute (6) macrosomia: Code(s): O36.60X0 - Maternal care for excessive growth, unspecified trimester, not applicable or unspecified Status: Acute (7) Heterozygous MTHFR mutation C677T: Code(s): Z15.89 - Genetic susceptibility to other disease Status: Acute (8) Anemia: Code(s): D64.9 - Anemia, unspecified Status: Acute Plan day: 2 Plan: routine care, discharge home and follow up 6 weeks Time Spent With Patient Time: Total time spent is greater than 50% in coordination of care (as documented) at patient's floor/unit and/or counseling patient: Time with patient: less than 15 minutes Review of Systems Review of Systems: All systems reviewed & are unremarkable except as noted in HPI and below Exam Const: General: comfortable, no acute distress, alert and awake Orientation/consciousness: patient oriented x3 Chest: Breast/axilla inspection: normal inspection of the breasts Resp: Effort & Inspection: normal respiratory effort Auscultation: clear to auscultation bilaterally Cardio: Rate: regular rate GI: GI Palp: Yes Soft to palpation Auscultation: normal bowel sounds Other: ddi : External Female Exam: normal external appearance Bimanual exam- vagina & uterus: non-tender Psych: Appearance: grossly normal Mental Status: mental status grossly normal Affect: normal affect Attitude: cooperative Thought content: Yes Normal thought content present Judgement: Good judgement present (Psych)
--- NOTE | 2021-06-04 12:07 | PC.NURSE ---
Patient viewed the discharge video Mother & Baby Care, The First Two Weeks . Patient was given the opportunity and encouraged to ask questions. Patient verbalized understanding of information shared and has been given the mother/baby guide for home reference.
[2021-06-04] MEDS: MULTIVIT/MIN/PREN/FOL AC/IRON TABLET 1 TAB PO (12:48)
[2021-06-04 18:45] VITALS: BP 124/86; PULSE 112; RESP 18; TEMP 36.7
[2021-06-05] MEDS: METHYLERGONOVINE MALEATE 0.2 MG TABLET PO ×4 (00:07→17:38)
[2021-06-05] MEDS: HYDROcodone/acetaminophen (*CRX) 5-325 MG TABLET 1 TAB PO ×3 (00:07→17:37)
[2021-06-05] MEDS: SIMETHICONE 80 MG TAB.CHEW PO ×3 (00:07→09:01)
[2021-06-05] MEDS: IBUPROFEN 600 MG TABLET PO ×3 (00:08→17:38)
[2021-06-05 07:45] VITALS: BP 120/72; PULSE 84; RESP 16; TEMP 37.1; O2SAT 98
[2021-06-05] MEDS: POLYSACCHARIDE IRON COMPLEX 150 MG CAPSULE PO ×2 (09:01→17:37)
[2021-06-05] MEDS: DOCUSATE SODIUM 100 MG CAPSULE PO ×2 (09:01→17:37)
[2021-06-05] MEDS: MULTIVIT/MIN/PREN/FOL AC/IRON TABLET 1 TAB PO (09:01)
[2021-06-05] MEDS: NYSTATIN OINTMENT 15 GM TUBE 1 APPLIC TOPICAL (09:03)
--- NOTE | 2021-06-05 09:45 | PC.NURSE ---
Observed mother is able to independently latch infant with appropriate positioning/alignment. She denies any nipple discomfort, is feeding as required and waking infant to feed if needed. has had several effective feedings in the past 24 hours, mother chooses to bottle feed at times and will supplement after if she feels infant is not satisfied after . is currently meeting outcomes for weight, output, jaundice and feeding frequencies. Mother states she feels confident to continue current feeding plan at home. Reviewed transition to breast milk, signs of adequate intake, and engorgement/relief. Mother reports she has a double electric breastpump at home and has reviewed instructions. Stressed for mother to wake infant every three hours if last feeding was at breast or 4 hours if last feeding was formula, always feeding before if infant is rooting. Blue feeding elimination flow sheet reviewed and marked for output required each day. Instructed to call ICP if intake/output less than required. Reviewed regular medications mother is taking. Information provided per Karolina. Reviewed community resources on the [facility] website and in the Mom/Baby guide. Information on outpatient services provided. Mother has no further questions at this time.
[2021-06-05 09:56] LABS: Rapid Plasma Reagin Non-Reactive (NonReactive)
--- NOTE | 2021-06-05 10:16 | PM.OBDSVD ---
DS: Admitting Diagnosis Admitting Diagnosis Term macrosomia Cephalopelvic disproportion -induced hypertension MTHFR Obesity Elective section DS: Discharge Diagnosis Discharge Diagnosis (1) Term delivered: Code(s): O80 - Encounter for full-term uncomplicated delivery Status: Acute (2) Delivery by elective section: Code(s): O82 - Encounter for delivery without indication Status: Acute (3) macrosomia: Code(s): O36.60X0 - Maternal care for excessive growth, unspecified trimester, not applicable or unspecified Status: Acute (4) Cephalopelvic disproportion: Code(s): O33.9 - Maternal care for disproportion, unspecified Status: Acute (5) induced hypertension: Code(s): O13.9 - Gestational [-induced] hypertension without significant proteinuria, unspecified trimester Status: Acute (6) Obesity: Code(s): E66.9 - Obesity, unspecified Status: Acute (7) Rubella non-immune status, antepartum: Code(s): O99.891 - Other specified diseases and conditions complicating ; Z28.3 - Underimmunization status Status: Acute (8) Maternal varicella, non-immune: Code(s): O09.899 - Supervision of other high risk pregnancies, unspecified trimester; Z28.3 - Underimmunization status Status: Acute (9) Generalized anxiety disorder: Code(s): F41.1 - Generalized anxiety disorder Status: Acute (10) Heterozygous MTHFR mutation C677T: Code(s): Z15.89 - Genetic susceptibility to other disease Status: Acute OB - DS: Summary Hospital Course Time spent discussing smoking cessation with patient: 3 to 10 minutes OB Procedures : Ultrasound OB Procedures Intrapartum: low cervical, transverse OB Procedures: : None Peripartum Data Delivery Method: Section Laceration Description: None Episiotomy description: None Procedures: Procedures Operation Date: 06/02/21 09:00 < primary low-transverse section with delivery of viable female infant and placenta > complications: none 1: Gender: Female ([place]) Disposition of : home Status at Discharge Cognitive/behavioral status at discharge: Normal Functional status at discharge: independent ambulation Overall status at discharge: patient is back to baseline Time Spent with Patient Time attestation: Total time spent providing and/or coordinating discharge services: Time spent: Less than 30 minutes Exam Const: General: cooperative, healthy appearing, comfortable, no acute distress, well developed, alert, awake and Physically active Nutritional Appearance: obese Orientation/consciousness: patient oriented x3 Limitations: no limitations HENMT: Head: normal to inspection Eyes: General: appearance normal, both eyes and all related structures Neck: Neck: normal visual inspection Chest: Chest palpation & inspection: normal inspection of the chest Breast/axilla inspection: normal inspection of the breasts Resp: Effort & Inspection: normal respiratory effort Auscultation: clear to auscultation bilaterally Cardio: Rate: regular rate Rhythm: regular rhythm GI: Inspection: normal to inspection and incision (ddi) GI Palp: Yes Soft to palpation Auscultation: normal bowel sounds : External Female Exam: normal external appearance Bimanual exam- vagina & uterus: non-tender Back/Spine/Pelvis: Back: no CVA tenderness Skin: General skin exam: normal color Neuro: General: patient oriented x3, gait normal, tone normal, moves all extremities and Normal light touch and pain sensation Extrem: General: normal to inspection and full ROM Psych: Appearance: grossly normal Mental Status: mental status grossly normal Speech and movement: Normal speech and movement present Affect: normal affect Attitude: cooperat
[2021-06-05 10:18] VITALS: PULSE 84; RESP 16; O2SAT 98
--- NOTE | 2021-06-05 16:00 | PCCCNOTE ---
Care Coordination met with pt. this afternoon. Pt.'s current D/C plan is to return home with FOB, FOB parents, and FOB brother. Pt. states that she is independent with ADLs and ambulation. Pt. has no medical equipment at home. She states that FOB's family are very supportive. Pt. states that they have everything needed to safely bring baby home. Pt. will begin process for WIC at time of D/C, she has been provided resources. Pt. states that they have a vp clinical arranged for baby. They have no questions or concerns regarding bring baby home. CC has provided pt. with a basket of items for baby such as clothing. No further need for CC services at this time.
[2021-06-07 10:45] VITALS: BP 127/87; PULSE 94; RESP 20; TEMP 37.6; O2SAT 100
== END 2021-06-05 18:50 | disposition home or self-care (01) | DRG 540 ==
LOC: ANHLDR 13:38 → ANHOB2 13:39
PROVIDERS: Admitting Provider Obstetrics & Gynecology; PCP Physician Assistant; Visit Provider Obstetrics & Gynecology
PROC: 10D00Z1 Extraction of Products of Conception, Low, Open Approach (ICD-10-PCS; CPT 59514; principal; 2021-06-02 09:00)
DX: O36.63X0 Maternal care for excessive fetal growth, third trimester, not applicable or unspecified (principal); O99.284 Endocrine, nutritional and metabolic diseases complicating childbirth; E72.12 Methylenetetrahydrofolate reductase deficiency; O13.4 Gestational [pregnancy-induced] hypertension without significant proteinuria, complicating childbirth; O69.81X0 Labor and delivery complicated by cord around neck, without compression, not applicable or unspecified; Z3A.39 39 weeks gestation of pregnancy; Z37.0 Single live birth; O33.9 Maternal care for disproportion, unspecified
CPT/HCPCS: 36415; 85025; 86592; 86850; 86900; 86901; 88307; 90710; A9270; J0131; J1200; J1885; J2270; J2274; J2405; J2590; J7120

== ENCOUNTER 2021-06-09 23:45 | Emergency (ER) | payer BC, SELFPAY ==
[2021-06-09 23:53] VITALS: BP 145/97; PULSE 110; RESP 18; TEMP 37.3; O2SAT 100
--- NOTE | 2021-06-10 00:22 | PC.NURSE ---
pt here c/o vaginal bleeding that is not saturating any pads. pt is and giving formula. not continuously .
[2021-06-10] MEDS: SODIUM CHLORIDE 0.9% IV 1,000 ML 999 ML IV CONT (00:40)
[2021-06-10 00:52] LABS: Basophils Percent Auto 0.3 % (0.2-1.2); Eosinophils Absolute Auto 0.2 K/mm3 (0-0.3); Eosinophils Percent Auto 1.7 % (0-4.4); Hematocrit 27.9 % (37.0-47.0); Hemoglobin 8.9 g/dL (12.0-15.0); Immature Granulocyte Absolute 0.06 K/mm3 (0.00-0.031); Immature Granulocyte Percent A 0.5 % (0-0.5); Lymphocytes Absolute Auto 1.26 K/mm3 (0.9-3.2); Mean Corpuscular HGB Conc 31.9 g/dl (32-36); Mean Corpuscular Hemoglobin 32.1 pg (26-34); Mean Corpuscular Volume 100.7 fl (80-100); Mean Platelet Volume 8.7 fl (7.4-10.4); Monocytes Absolute Auto 0.7 K/mm3 (0.1-0.6); Monocytes Percent Auto 5.9 % (2.6-8.5); Neutrophils Absolute Auto 9.2 K/mm3 (1.3-6.7); Neutrophils Percent Auto 80.6 % (45.5-73.1); Platelet Count Result 369 k/mm3 (150-375); Red Blood Count 2.77 M/mm3 (4.2-5.4); Red Cell Distribution Width 12.2 % (11.5-14.5); White Blood Count 11.4 K/mm3 (4.5-10.0)
[2021-06-10 00:59] LABS: INR 0.9; Prothrombin Time 11.9 Seconds (11.1-14.7)
[2021-06-10 01:07] LABS: Alanine Aminotransferase 27 U/L (4-35); Albumin Level 3.7 g/dL (3.7-5.6); Alkaline Phosphatase 194 U/L (45-116); Anion Gap 9 mmol/L (8-16); Aspartate Amino Transferase 36 U/L (14-36); Bilirubin,Total 0.3 mg/dL (0.2-1.3); Blood Urea Nitrogen 15 mg/dL (8-21); Calcium 8.6 mg/dL (8.9-10.7); Carbon Dioxide 22 mmol/L (22-30); Chloride 109 mmol/L (98-107); Estimated CRCL calculation 110 ml/min; Estimated Glomerular Filt Rate > 60; Glucose 101 mg/dL (65-110); Potassium 3.7 mmol/L (3.4-5.0); Sodium 140 mmol/L (134-143)
--- NOTE | 2021-06-10 01:53 | ED.GENADULT ---
HPI - General Adult General Chief complaint: Vaginal Bleeding Stated complaint: post- bleeding Time Seen by Provider: 06/10/21 00:05 History of Present Illness HPI narrative: Patient presents with vaginal bleeding. Patient reports she was a approximately 1 week ago was initially doing well postoperatively. Today she was breast-feeding her child and felt something coming from her vagina as she went to look at it and noted a large volume of blood on her legs. She did not have any pads but using pain liners and soaking through them. She was concerned regarding the volume of blood so she came to the ER for evaluation. Sure ports mild abdominal pain that is been consistent since her procedure she denies any urinary symptoms she denies any lightheadedness chest pain or shortness of breath. Related Data Home Medications Medication Instructions Recorded Confirmed 1 tablet PO DAILY 03/23/21 05/23/21 folic acid 1 mg PO DAILY 03/23/21 06/02/21 Allergies Allergy/AdvReac Type Severity Reaction Status Date / Time No Known Allergies Allergy Verified 05/11/21 13:21 Review of Systems Review of Systems: CONSTITUTIONAL: Denies fever, chills, or sweats. EYES: Denies visual changes, redness, or discharge. ENT: Denies rhinorrhea, congestion, sore throat, or otalgia. CARDIOVASCULAR: Denies chest pain, palpitations, or edema. RESPIRATORY: Denies cough or dyspnea. GASTROINTESTINAL: Denies abdominal pain, nausea, vomiting, or diarrhea. GENITOURINARY: Denies dysuria or hematuria. SKIN: Denies rash or itching. MUSCULOSKELETAL: Denies back pain, joint pain, or myalgia. NEUROLOGIC: Denies headache, numbness, dizziness, or weakness. PSYCHIATRIC: Denies anxiety or depression. All systems reviewed & are unremarkable except as noted in HPI and below PMFSH Past Medical History Medical History Anemia Bacterial vaginosis in Cephalopelvic disproportion macrosomia Generalized anxiety disorder Glucose tolerance test abnormal Normal 3 hour glucose tolerance test Heterozygous MTHFR mutation C677T Maternal varicella, non-immune Obesity induced hypertension PTSD (post-traumatic stress disorder) Rubella non-immune status, antepartum Family History Family History Other No pertinent family history Social History Social History Smoking status: Never smoker Alcohol intake: never Substance use: never Substance use type: does not use Gender identity (if verbalized by the patient): Female Sexual Orientation (if Verbalized by the Patient): Straight or Heterosexual Spiritual care concerns: No Agree to blood products: Yes Exam Narrative: GENERAL: Well-appearing, well-nourished, and in no acute distress. HEAD: Normocephalic, atraumatic. EYES: PERRLA and EOMI. ENT: Nares clear, no rhinorrhea or epistaxis. Mucous membranes moist. NECK: Supple. No masses. No JVD ABDOMEN: Soft, nontender, nondistended, normal active bowel sounds. : Nursing guidance services coordinator present there was a moderate volume of dark red blood with small clots noted in the vaginal vault there is small amount of oozing noted from the cervix EXTREMITIES: Normal range of motion. No edema. SKIN: Warm, dry, no rash. NEURO: No focal deficits. Alert and oriented x3. PSYCH: Normal mood and affect. Course Reevaluation(s) Reevaluation #1: Patient is resting comfortably reporting improvement in her bleeding. Case was discussed with Dr. Win. Given patient's improvement and work-up clinically unremarkable she is appropriate for continued outpatient monitoring recommendation was to start patient on Methergine patient has a follow-up appointment already scheduled for early next week. Patient comfortable with the outpatient plan. Date: 06/10/21 Time: 01:59 Vital Signs Vi
[2021-06-10 02:11] VITALS: BP 128/86; PULSE 86; RESP 18; TEMP 36.1; O2SAT 99
== END 2021-06-10 02:12 | disposition home or self-care (01) ==
PROVIDERS: Emergency Provider Emergency Medicine; PCP Obstetrics & Gynecology
DX: O72.2 Delayed and secondary postpartum hemorrhage (principal); O99.285 Endocrine, nutritional and metabolic diseases complicating the puerperium; E72.12 Methylenetetrahydrofolate reductase deficiency; O99.215 Obesity complicating the puerperium; E66.9 Obesity, unspecified; O13.5 Gestational [pregnancy-induced] hypertension without significant proteinuria, complicating the puerperium; O90.81 Anemia of the puerperium; D64.9 Anemia, unspecified
CPT/HCPCS: 36415; 80053; 85025; 85610; 85730; 96360; 99284; J7030

== ENCOUNTER 2022-03-15 13:58 | Outpatient (CLI) | payer BC, SELFPAY ==
[2022-03-15 16:01] LABS: Basophils Percent Auto 0.3 % (0.2-1.2); Eosinophils Absolute Auto 0.2 K/mm3 (0-0.3); Eosinophils Percent Auto 1.6 % (0-4.4); Hematocrit 38.4 % (37.0-47.0); Hemoglobin 12.1 g/dL (12.0-15.0); Immature Granulocyte Absolute 0.04 K/mm3 (0.00-0.031); Immature Granulocyte Percent A 0.4 % (0-0.5); Lymphocytes Absolute Auto 2.45 K/mm3 (0.9-3.2); Lymphocytes Percent Auto 22.9 % (18.3-44.2); Mean Corpuscular HGB Conc 31.5 g/dl (32-36); Mean Corpuscular Hemoglobin 28.7 pg (26-34); Mean Platelet Volume 9.5 fl (7.4-10.4); Monocytes Absolute Auto 0.5 K/mm3 (0.1-0.6); Monocytes Percent Auto 4.4 % (2.6-8.5); Neutrophils Absolute Auto 7.6 K/mm3 (1.3-6.7); Neutrophils Percent Auto 70.4 % (45.5-73.1); Platelet Count Result 326 k/mm3 (150-375); Red Blood Count 4.22 M/mm3 (4.2-5.4); Red Cell Distribution Width 15.1 % (11.5-14.5); White Blood Count 10.7 K/mm3 (4.5-10.0)
[2022-03-15 16:17] LABS: Glucose 1 Hour PP 50gm Dose 107 mg/dL
[2022-03-15 16:59] LABS: HIV 1/2 Ab P24 Ag Result Negative (Negative)
[2022-03-15 17:16] LABS: Hepatitis B Surface Antigen Negative (Negative); Rubella IgG Antibody 8.4 IU/ML
[2022-03-16 06:10] LABS: Rapid Plasma Reagin Non-Reactive (NonReactive)
[2022-03-18 14:28] LABS: CMV IgG Antibody <0.60 U/mL (<0.60)
[2022-03-20 12:04] LABS: Varicella IgG Antibody <135.00 Index (>=165.00)
== END 2022-03-15 13:59 | disposition home or self-care (01) ==
LOC: ANHLAB 13:59
PROVIDERS: PCP Obstetrics & Gynecology; Visit Provider Obstetrics & Gynecology
DX: N94.89 Other specified conditions associated with female genital organs and menstrual cycle (principal)
CPT/HCPCS: 36415; 82947; 84702; 85025; 86592; 86644; 86703; 86747; 86762; 86787; 86850; 86900; 86901; 87086; 87088; 87340; G0432

== ENCOUNTER 2022-04-03 15:12 | Outpatient (CLI) | payer BC, SELFPAY ==
--- NOTE | ~2022-04-03 | US_ITS ---
EXAMINATION: US OB <= 14 weeks fetus, US OB <= 14 wk fetus add gest DATE: 04/03/2022 15:56 INDICATION: Twin . TECHNIQUE: Real-time transabdominal obstetric ultrasound. FINDINGS: No prior studies for comparison. The uterus measures 13 x 8.1 x 5.3 cm. There is an intrauterine gestational sac, with pole iden tified. Right ovary is unremarkable. Left ovary is not seen. Separate gestational sacs are present, c onsistent with dichorionic, diamniotic . Twin A: The crown rump length measures 1.81 cm, which correlates with a estimated gestational age of 8 weeks 2 days. heart tones are identified measuring 173 BPM. Twin B: The crown rump length measures 2.11 cm, which correlates with a estimated gestational age of 8 weeks 5 days. heart tones are identified measuring 180 BPM. IMPRESSION: 1. Twin living intrauterine with an EGA of 8 weeks, 3 days (EDC by current ultrasound of ). Reviewed, dictated and finalized at location A. IMPRESSION: 1. Twin living intrauterine with an EGA of 8 weeks, 3 days (EDC by cu rrent ultrasound of 11/10/2022).
== END 2022-04-03 15:13 | disposition home or self-care (01) ==
PROVIDERS: PCP Obstetrics & Gynecology; Visit Provider Obstetrics & Gynecology
DX: O30.001 Twin pregnancy, unspecified number of placenta and unspecified number of amniotic sacs, first trimester (principal); Z3A.09 9 weeks gestation of pregnancy
CPT/HCPCS: 76801; 76802

== ENCOUNTER 2022-10-10 09:26 | Outpatient (CLI) | payer OTHER, SELFPAY ==
--- NOTE | ~2022-10-10 | US_ITS ---
EXAMINATION: 1. US OB follow up 2. US OB f/u add gest DATE: 10/10/2022 11:01 INDICATION: Third trimester. Placental location. weight. TECHNIQUE: Real-time ultrasound of the pelvis was performed. COMPARISON: Ultrasound 10/09/2022, 04/03/2022 FINDINGS: There are two living fetuses. The first ultrasound demonstrated the to be dichorionic, diam niotic. The placentas are fundal. The deepest vertical pocket of fluid is 4.9 cm in the sac for fetus A and 4.9 cm from the second fetus B. Fetus A: Lie is transverse with head to mother's left. heart rate is 135 beats per minute (bpm). The [facility] biometric data were obtained: Biparietal diameter (BPD): 8.8 cm; head circumference (HC): 32.4 cm; abdominal circumference (AC): 35 .7 cm; femur length (FL): 7.4 cm. These measurements are concordant. Estimated weight is 3465 g +/- 520 g, which correlates with the 97th percentile when 11/07/22 is used as estimated date of delivery. As single measurements, these parameters are each equal to the following estimated gestational ages: BPD: 35 weeks 3 days. HC: 36 weeks 4 days. AC: 39 weeks 4 days. FL: 38 weeks 0 days. estimated gestational age based solely on measurements from this exam is 37 weeks 3 days +/- 2 weeks 4 days. Fetus B: Presentation is breech on the mother's right. heart rate is 142 bpm. The following biometric da ta were obtained: Biparietal diameter (BPD): 8.9 cm; head circumference (HC): 32.0 cm; abdominal circumference (AC): 33 .2 cm; femur length (FL): 7.0 cm. These measurements are concordant. Estimated weight is 2993 g +/- 449 g, which correlates with the 69th percentile when 11/07/22 is used as estimated date of delivery. As single measurements, these parameters are each equal to the following estimated gestational ages: BPD: 36 weeks 0 days. HC: 36 weeks 0 days. AC: 37 weeks 1 days. FL: 36 weeks 1 days. estimated gestational age based solely on measurements from this exam is 36 weeks 2 days +/- 2 weeks 4 days. IMPRESSION: 1. Living dichorionic, diamniotic twin fetuses. 2. Fetus A is large for estimated gestational age. Estimated weight is 3465 g +/- 520 g, which correlates with the 97th percentile when 11/07/22 is used as estimated date of delivery. 3. Fetus B's estimated weight is 2993 g +/- 449 g, which correlates with the 69th percentile wh en 11/07/22 is used as estimated date of delivery. Reviewed, dictated and finalized at location A. LLENCE COACH IMPRESSION: 1. Living dichorionic, diamniotic twin fetuses. 2. Fetus A is large for estimated gestational age. Estimated weight is 3 465 g +/- 520 g, which correlates with the 97th percentile when 11/07/22 is used as estimated date of delivery. 3. Fetus B's estimated weight is 2993 g +/- 449 g, which correlates with the 69th percentile when 11/07/22 is used as estimated date of delivery.
== END 2022-10-10 09:27 | disposition home or self-care (01) ==
PROVIDERS: PCP Obstetrics & Gynecology; Visit Provider Obstetrics & Gynecology
DX: O30.043 Twin pregnancy, dichorionic/diamniotic, third trimester (principal); Z3A.37 37 weeks gestation of pregnancy
CPT/HCPCS: 76816

== ENCOUNTER 2022-10-23 01:11 | Inpatient (IN) | payer OTHER, SELFPAY ==
--- NOTE | 2022-10-16 14:52 | PC.NURSE ---
Verified with OR schedule and patient-C/S with tubal ligation 11/01/22 at 0730--having Twins patient given requisition for lab draw on 10/31/22
[2022-10-23] VITALS (109 sets, daily range): BP systolic 107–147; BP diastolic 49–97; PULSE 61–127; RESP 16–22; TEMP 36.4–37; O2SAT 93–100; BMI 44.1
[2022-10-23] MEDS: LACTATED RINGERS 1,000 ML 125 ML IV CONT ×3 (02:20→06:17)
--- NOTE | 2022-10-23 02:29 | LDADM ---
This patient, Radha Payne, was admitted to Labor/Delivery/Recovery 120 on 10/23/22 at 01:11. Plans for labor, pain management and were discussed with patient. Patient/family oriented to hospital policies and general routines including ID bracelet, bed and alarms, visiting hours, pain management, procedures, bathroom and other care routines, personal items, smoking policy, room service/diet and guest tray routines, infant security routines, and visiting hours. Patient/Family are encouraged to report perceived risks to care and to ask questions if they do not understand what they are told or what they should do. See OBIX for further documentation.
[2022-10-23] MEDS: AMPICILLIN 2 GM/NS 100 ML 2 GM/100 ML BAG IVPB (02:46)
[2022-10-23 02:47] LABS: Basophils Percent Auto 0.3 % (0.2-1.2); Eosinophils Absolute Auto 0.2 K/mm3 (0-0.3); Eosinophils Percent Auto 1.9 % (0-4.4); Hematocrit 32.3 % (37.0-47.0); Hemoglobin 10.4 g/dL (12.0-15.0); Immature Granulocyte Absolute 0.07 K/mm3 (0.00-0.031); Immature Granulocyte Percent A 0.8 % (0-0.5); Lymphocytes Absolute Auto 1.96 K/mm3 (0.9-3.2); Lymphocytes Percent Auto 21.4 % (18.3-44.2); Mean Corpuscular HGB Conc 32.2 g/dl (32-36); Mean Corpuscular Hemoglobin 30.9 pg (26-34); Mean Corpuscular Volume 95.8 fl (80-100); Mean Platelet Volume 10.7 fl (7.4-10.4); Monocytes Absolute Auto 0.6 K/mm3 (0.1-0.6); Neutrophils Absolute Auto 6.3 K/mm3 (1.3-6.7); Neutrophils Percent Auto 68.6 % (45.5-73.1); Nucleated Red Blood Cells Perc 0.3 % (0.0-0.2); Platelet Count Result 204 k/mm3 (150-375); Red Blood Count 3.37 M/mm3 (4.2-5.4); Red Cell Distribution Width 12.9 % (11.5-14.5); White Blood Count 9.2 K/mm3 (4.5-10.0)
--- NOTE | 2022-10-23 06:17 | WPDANESEPP ---
Anes - Eval Pre Procedure Procedure: Operation Date: 11/01/22 07:30 Proposed ProceduresLabo Date/Time: 10/23/22 06:17 Surgeon: Greg Lawrence Preop Diagnosis: Abdominal pain with contractions Pre Op Diagnosis: SROM-Twins Patient Data Age: 21 Gender: F Height: 1.55 m Weight: 106 kg Last Vital Signs Temp 98.3 F 10/23/22 02:26 Pulse 103 H 10/23/22 02:46 BP 130/59 L 10/23/22 02:46 Pulse Ox 99 10/23/22 06:15 Allergies Allergy/AdvReac Type Severity Reaction Status Date / Time No Known Allergies Allergy Verified 10/16/22 14:31 Home Medications Medication Instructions Recorded Confirmed Type vit no.133-ferrous 1 tablet PO DAILY 03/23/21 03/12/22 History fumarate 28 mg-folic acid 800 mcg tablet () Laboratory Tests 10/23/22 10/23/22 10/23/22 02:22 02:22 02:22 WBC 9.2 K/mm3 K/mm3 (4.5-10.0) RBC 3.37 M/mm3 L M/mm3 (4.2-5.4) Hgb 10.4 g/dL L g/dL (12.0-15.0) Hct 32.3 % L % (37.0-47.0) MCV 95.8 fl fl (80-100) MCH 30.9 pg pg (26-34) MCHC 32.2 g/dl g/dl (32-36) RDW 12.9 % % (11.5-14.5) Plt Count 204 k/mm3 k/mm3 (150-375) MPV 10.7 fl H fl (7.4-10.4) Immature Gran % (Auto) 0.8 % H % (0-0.5) Neut % (Auto) 68.6 % % (45.5-73.1) Lymph % (Auto) 21.4 % % (18.3-44.2) [place] % (Auto) 7.0 % % (2.6-8.5) Eos % (Auto) 1.9 % % (0-4.4) Baso % (Auto) 0.3 % % (0.2-1.2) Lymph # (Auto) 1.96 K/mm3 K/mm3 (0.9-3.2) [place] # (Auto) 0.6 K/mm3 K/mm3 (0.1-0.6) Eos # (Auto) 0.2 K/mm3 K/mm3 (0-0.3) Baso # (Auto) 0.0 K/mm3 K/mm3 (0.0-0.1) Abs Immat Gran (auto) 0.07 K/mm3 H K/mm3 (0.00-0.031) Absolute Neuts (auto) 6.3 K/mm3 K/mm3 (1.3-6.7) Absolute Nucleated RBC 0.0 K/mm3 K/mm3 (0.0-0.012) Nucleated RBC % 0.3 % H % (0.0-0.2) RPR Pending Blood Type A Positive Antibody Screen Negative : gestational age HCG: positive Patient hx anesthesia problems: none Family hx anesthesia problems: none Results Review: All pre-operative results and documents have been reviewed as part of the pre-operative evaluation. [facility] Past Medical History Medical History Anemia Bacterial vaginosis in Cephalopelvic disproportion macrosomia Generalized anxiety disorder Glucose tolerance test abnormal Normal 3 hour glucose tolerance test Heterozygous MTHFR mutation C677T Maternal varicella, non-immune Obesity induced hypertension PTSD (post-traumatic stress disorder) Rubella non-immune status, antepartum Suppression of menstruation Surgical History Surgical History Delivery by section (06/02/21) primary c/s due to gestational HTN Family History Family History Grandparent High cholesterol Social History Social History Smoking status: Never smoker Second hand tobacco smoke exposure: No Alcohol intake: never Substance use: never Substance use type: does not use Lack of Transportation: No Lack of Food: Never True Current Housing: I Have Housing Concerned About Future Housing: No Difficulty Paying Gas/Electric Bills: No Difficulty Paying for Meds: No Currently Unemployed: YES Education: High School Diploma/GED Difficulty w/ Childcare or Family Care: No Additional living arrangements comments: single Additional occupation/education comments: stay at home mom Gender identity (if verbalized by the patient): Female Sexual Orientation (if Verbalized by the Patient): Straight or Heterosexual Spiritual care mark
--- NOTE | 2022-10-23 06:44 | PM.IMHP ---
H&P: HPI History of Present Illness Date/Time: 10/23/22 06:44 Chief Complaint: Twins in labor and desires permanent sterilization Narrative: a 21-year-old ball tip with twins at term who desires permanent sterilization. She has signed her [facility] tubal ligation forms. Her is at term and she has had a previous section PMFSH Past Medical History Medical History Anemia Bacterial vaginosis in Cephalopelvic disproportion macrosomia Generalized anxiety disorder Glucose tolerance test abnormal Normal 3 hour glucose tolerance test Heterozygous MTHFR mutation C677T Maternal varicella, non-immune Obesity induced hypertension PTSD (post-traumatic stress disorder) Rubella non-immune status, antepartum Suppression of menstruation Surgical History Surgical History Delivery by section (06/02/21) primary c/s due to gestational HTN Family History Family History Grandparent High cholesterol Social History Social History Smoking status: Never smoker Second hand tobacco smoke exposure: No Alcohol intake: never Substance use: never Substance use type: does not use Lack of Transportation: No Lack of Food: Never True Current Housing: I Have Housing Concerned About Future Housing: No Difficulty Paying Gas/Electric Bills: No Difficulty Paying for Meds: No Currently Unemployed: YES Education: High School Diploma/GED Difficulty w/ Childcare or Family Care: No Additional living arrangements comments: single Additional occupation/education comments: stay at home mom Gender identity (if verbalized by the patient): Female Sexual Orientation (if Verbalized by the Patient): Straight or Heterosexual Spiritual care concerns: No Agree to blood products: Yes Meds Home Medications and Allergies Home Medications Medication Instructions Recorded Confirmed Type vit no.133-ferrous 1 tablet PO DAILY 03/23/21 03/12/22 History fumarate 28 mg-folic acid 800 mcg tablet () Allergies Allergy/AdvReac Type Severity Reaction Status Date / Time No Known Allergies Allergy Verified 10/16/22 14:31 Vital Signs Vital Signs - 24 hr 10/23/22 01:31 10/23/22 01:46 10/23/22 02:01 Temperature Pulse Rate 116 H 120 H 127 H Blood Pressure 143/85 H 132/78 128/70 Pulse Oximetry 10/23/22 02:16 10/23/22 02:18 10/23/22 02:19 Temperature Pulse Rate 107 H Blood Pressure 132/80 Pulse Oximetry 99 93 10/23/22 02:24 10/23/22 02:28 10/23/22 02:31 Temperature Pulse Rate 107 H Blood Pressure 128/69 Pulse Oximetry 93 98 10/23/22 02:33 10/23/22 02:38 10/23/22 02:43 Temperature Pulse Rate Blood Pressure Pulse Oximetry 99 98 98 10/23/22 02:46 10/23/22 02:53 10/23/22 02:58 Temperature Pulse Rate 103 H Blood Pressure 130/59 L Pulse Oximetry 99 98 10/23/22 03:03 10/23/22 03:08 10/23/22 03:13 Temperature Pulse Rate Blood Pressure Pulse Oximetry 99 98 98 10/23/22 03:18 10/23/22 03:23 10/23/22 03:28 Temperature Pulse Rate Blood Pressure Pulse Oximetry 98 97 100 10/23/22 03:33 10/23/22 03:38 10/23/22 03:43 Temperature Pulse Rate Blood Pressure Pulse Oximetry 98 98 97 10/23/22 03:48 10/23/22 03:53 10/23/22 03:58 Temperature Pulse Rate Blood Pressure Pulse Oximetry 97 98 98 10/23/22 04:03 10/23/22 04:08 10/23/22 04:13 Temperature Pulse Rate Blood Pressure Pulse Oximetry 99 98 99 10/23/22 04:18 10/23/22 04:23 10/23/22 04:28 Temperature Pulse Rate Blood Pressure Pulse Oximetry 96 98 95 10/23/22 04:33 10/23/22 04:38 10/23/22 04:43 Temperature
--- NOTE | 2022-10-23 06:47 | WPDANESEPPF ---
Anes - Initial Pre Proc Eval Procedure: Operation Date: 11/01/22 07:30 Proposed Procedures p Repeat Section with Tubal Ligation - Duran Lawrence MD Date/Time: 10/23/22 06:47 Surgeon: Duran Lawrence MD Pre Op Diagnosis: SROM-Twins Patient Data Age: 21 Gender: F Height: 1.55 m Weight: 106 kg Last Vital Signs Temp 36.8 C 10/23/22 02:26 Pulse 105 H 10/23/22 06:43 BP 137/83 10/23/22 06:43 Pulse Ox 99 10/23/22 06:42 Allergies Allergy/AdvReac Type Severity Reaction Status Date / Time No Known Allergies Allergy Verified 10/16/22 14:31 Home Medications Medication Instructions Recorded Confirmed Type vit no.133-ferrous 1 tablet PO DAILY 03/23/21 03/12/22 History fumarate 28 mg-folic acid 800 mcg tablet () Laboratory Tests 10/23/22 10/23/22 10/23/22 02:22 02:22 02:22 WBC 9.2 K/mm3 K/mm3 (4.5-10.0) RBC 3.37 M/mm3 L M/mm3 (4.2-5.4) Hgb 10.4 g/dL L g/dL (12.0-15.0) Hct 32.3 % L % (37.0-47.0) MCV 95.8 fl fl (80-100) MCH 30.9 pg pg (26-34) MCHC 32.2 g/dl g/dl (32-36) RDW 12.9 % % (11.5-14.5) Plt Count 204 k/mm3 k/mm3 (150-375) MPV 10.7 fl H fl (7.4-10.4) Immature Gran % (Auto) 0.8 % H % (0-0.5) Neut % (Auto) 68.6 % % (45.5-73.1) Lymph % (Auto) 21.4 % % (18.3-44.2) [place] % (Auto) 7.0 % % (2.6-8.5) Eos % (Auto) 1.9 % % (0-4.4) Baso % (Auto) 0.3 % % (0.2-1.2) Lymph # (Auto) 1.96 K/mm3 K/mm3 (0.9-3.2) [place] # (Auto) 0.6 K/mm3 K/mm3 (0.1-0.6) Eos # (Auto) 0.2 K/mm3 K/mm3 (0-0.3) Baso # (Auto) 0.0 K/mm3 K/mm3 (0.0-0.1) Abs Immat Gran (auto) 0.07 K/mm3 H K/mm3 (0.00-0.031) Absolute Neuts (auto) 6.3 K/mm3 K/mm3 (1.3-6.7) Absolute Nucleated RBC 0.0 K/mm3 K/mm3 (0.0-0.012) Nucleated RBC % 0.3 % H % (0.0-0.2) RPR Pending Blood Type A Positive Antibody Screen Negative : gestational age HCG: positive Patient hx anesthesia problems: none Family hx anesthesia problems: none Results Review: All pre-operative results and documents have been reviewed as part of the pre-operative evaluation. [facility] Past Medical History Medical History Anemia Bacterial vaginosis in Cephalopelvic disproportion macrosomia Generalized anxiety disorder Glucose tolerance test abnormal Normal 3 hour glucose tolerance test Heterozygous MTHFR mutation C677T Maternal varicella, non-immune Obesity induced hypertension PTSD (post-traumatic stress disorder) Rubella non-immune status, antepartum Suppression of menstruation Surgical History Surgical History Delivery by section (06/02/21) primary c/s due to gestational HTN Family History Family History Grandparent High cholesterol Social History Social History Smoking status: Never smoker Second hand tobacco smoke exposure: No Alcohol intake: never Substance use: never Substance use type: does not use Lack of Transportation: No Lack of Food: Never True Current Housing: I Have Housing Concerned About Future Housing: No Difficulty Paying Gas/Electric Bills: No Difficulty Paying for Meds: No Currently Unemployed: YES Education: High School Diploma/GED Difficulty w/ Childcare or Family Care: No Additional living arrangements comments: single Additional occupation/education comments: stay at home mom Gender identity (if verbalized by the patient): Female Sexual Orientation (if Verbalized by the Patient):
--- NOTE | 2022-10-23 06:47 | WPDHPUPDATE1 ---
History and Physical Update Update Date/Time: 10/23/22 06:47 History and Physical has been reviewed, including an updated exam of the patient. There are NO changes in the patient's condition. Risks, benefits, and alternatives have been discussed and questions answered. Patient agrees to proceed with procedure.
[2022-10-23] MEDS: ceFAZolin 2 GM/D5W 50 ML 2 GM/50 ML BAG IVPB (07:23)
--- NOTE | 2022-10-23 08:06 | W.PM.PROC2 ---
Procedure Note - Detailed Date of Procedure 10/23/22 Pre-op Diagnosis SROM-Twins Post-op Diagnosis Same Procedure Performed Repeat low-transverse section Surgeon Duran Lawrence MD Anesthesia Epidural Indications this is a 21-year-old 3 para 1 with twins at term with spontaneous rupture membranes. She initially desired permanent sterilization but did not reach the age of 22 so this was unable to be performed. Findings Male a breech 8lb 3oz male be vertex 6lb 1oz Description of Procedure patient was prepped draped in normal sterile fashion placed in the dorsal lithotomy in the supine position. Under excellent epidural anesthetic the abdomen was entered in Pfannenstiel fashion progressive layers of fascia. Fascia was incised midline carried upward outward fashion bilaterally. Underlying muscles sharply dissected. Parietal peritoneum elevated clamps and by sharp dissection carried superiorly bladder blade was placed and bladder flap. Bladder blade returned in the low-transverse incision made. Baby A's was noted to be breech with the sacrum to the patient's left the legs were delivered and the arms swept medially with the head delivered in the flexed position the cord clamped x2 and cut infant passed off the table an excellent cry. The membranes were then ruptured and baby B was delivered in the SIENA position. Anterior posterior shoulder delivered spontaneously cord clamped tissues 2 and cut and passed off the table again with excellent cry. Placenta delivered intact manually uterus delivered on the abdomen wrapped in moist towel. After assuring no membranes or remainder of the uterus, the uterus was closed with continuous running locking 0 Vicryl from lateral edge to lateral edge. This was followed by a 2nd imbricating running locking 0 Vicryl from lateral edge to lateral edge. Hemostasis was assured and the uterus returned to the abdomen after visualizing normal ovaries and tubes. The a uterine incision inspected 1 last time and laps were counted for. The fascia closed with continuous running 0 Vicryl from lateral edge to midline bilaterally. Irrigation subcutaneous layer the skin closed with 4-0 Monocryl and glue. The patient went to recovery in satisfactory condition. All sponge, needle, instrument counts were correct. There were no immediate complications Estimated Blood Loss 445 Drains No Packing No Pathology None sent Complications No immediate complications Condition Stable Disposition PACU
--- NOTE | 2022-10-23 09:20 | SUR.PHASEI ---
HEAVY VAGINAL BLEEDING NOTED. CALLED DR. ROSALIO DE LEÓN AND METHERGINE ORDER RECEIVED
[2022-10-23] MEDS: METHYLERGONOVINE MALEATE 0.2 MG/ML VIAL IM (09:21)
[2022-10-23 10:00] LABS: Rapid Plasma Reagin Non-Reactive (NonReactive)
[2022-10-23] MEDS: OXYTOCIN 30 UNITS/NS 500 ML 30 UNITS/500 ML BAG 125 UNITS IV CONT (10:00)
--- NOTE | 2022-10-23 10:02 | SUR.PHASEI ---
FUNDAL MASSAGE PERFORMED AND CLOTS EXPRESSED. VAGINAL EXTRACTIONS OF CLOTS AND qbl 165 NOTED
[2022-10-23] MEDS: LORATADINE 10 MG TABLET PO (10:13)
--- NOTE | 2022-10-23 10:58 | PC.NURSE ---
Patient transferred to post room #277 via stretcher. Support person present. Oriented to unit, room, information board, rooming in, admission packet and security measures. Patient verbalizes understanding. Baby Boy A came up to the room with patient but Baby Boy B is currently in Level II Nursery.
[2022-10-23] MEDS: HYDROcodone/acetaminophen (*CRX) 10-325 MG TABLET 1 TAB PO ×3 (11:16→18:34)
--- NOTE | 2022-10-23 14:18 | PC.NURSE ---
1222 - [id number] Consulted with patient to assess needs related to . now Mother of twins led the conversation with her experience so far. RN encouraged protecting the milk supply with pumping related to Baby A received a bottle after an attempt with no latch, and separation with baby B. Mother states, she is just now getting a bit more comfortable. Primary RN is present in the room and states patient just received pain medication. Mother declines pumping at this time after a brief discussion regarding milk production and protecting the milk supply. Mother voiced understanding of information and will call if there is a request for assistance.
[2022-10-23] MEDS: IBUPROFEN 600 MG TABLET PO (14:45)
[2022-10-23] MEDS: DEXTROSE 5%/0.45% SOD CHL 1,000 ML 125 ML IV CONT (15:19)
[2022-10-23] MEDS: diphenhydrAMINE HCl INJ 50 MG/ML VIAL 25 MG IV PUSH ×2 (15:39→20:56)
[2022-10-23] MEDS: DOCUSATE SODIUM 100 MG CAPSULE PO (17:18)
[2022-10-23] MEDS: SIMETHICONE 80 MG TAB.CHEW PO (17:18)
[2022-10-23] MEDS: POLYSACCHARIDE IRON COMPLEX 150 MG CAPSULE PO (17:18)
[2022-10-24] MEDS: IBUPROFEN 600 MG TABLET PO ×4 (00:12→23:45)
[2022-10-24] MEDS: HYDROcodone/acetaminophen (*CRX) 5-325 MG TABLET 1 TAB PO ×7 (00:12→23:45)
[2022-10-24 04:45] VITALS: BP 128/73; PULSE 115; RESP 20; TEMP 36.6
[2022-10-24 05:22] LABS: Basophils Percent Auto 0.3 % (0.2-1.2); Eosinophils Absolute Auto 0.1 K/mm3 (0-0.3); Eosinophils Percent Auto 1.2 % (0-4.4); Hematocrit 29.2 % (37.0-47.0); Hemoglobin 9.3 g/dL (12.0-15.0); Immature Granulocyte Absolute 0.08 K/mm3 (0.00-0.031); Immature Granulocyte Percent A 0.7 % (0-0.5); Lymphocytes Absolute Auto 1.88 K/mm3 (0.9-3.2); Mean Corpuscular HGB Conc 31.8 g/dl (32-36); Mean Corpuscular Hemoglobin 31.3 pg (26-34); Mean Corpuscular Volume 98.3 fl (80-100); Mean Platelet Volume 11.1 fl (7.4-10.4); Monocytes Absolute Auto 1.1 K/mm3 (0.1-0.6); Monocytes Percent Auto 9.1 % (2.6-8.5); Neutrophils Absolute Auto 8.5 K/mm3 (1.3-6.7); Neutrophils Percent Auto 72.7 % (45.5-73.1); Nucleated Red Blood Cells Perc 0.2 % (0.0-0.2); Platelet Count Result 177 k/mm3 (150-375); Red Blood Count 2.97 M/mm3 (4.2-5.4); Red Cell Distribution Width 13.2 % (11.5-14.5); White Blood Count 11.7 K/mm3 (4.5-10.0)
[2022-10-24 07:00] VITALS: BP 111/44; PULSE 95; RESP 24; TEMP 36.5; O2SAT 95
--- NOTE | 2022-10-24 07:42 | PM.DS ---
DS: Admitting Diagnosis Discharge Date 10/26/2022 Admitting Diagnosis Spontaneous rupture membranes at term with twins/previous section DS: Discharge Diagnosis Discharge Diagnosis (1) Twin : Code(s): O30.009 - Twin , unspecified number of placenta and unspecified number of amniotic sacs, unspecified trimester Status: Acute (2) Spontaneous rupture of membranes: Status: Acute DS: Summary Hospital Course Reason for hospitalization: The patient was admitted at37+ weeks gestation with rupture of membranes with known twins. She had previous section and baby a was breech. Hospital Course: She underwent low-transverse section. Her hospital course was unremarkable. She remained afebrile. She was up, ambulating, voiding without difficulty, eating regular diet, in general without complaints. Baby B was transferred. Baby a was circumcised without complication. Time Spent with Patient Time attestation: Total time spent providing and/or coordinating discharge services: Exam Const: General: cooperative, healthy appearing, comfortable and overweight Orientation/consciousness: oriented to person, oriented to place and oriented to time HENMT: Head: normal to inspection Resp: Effort & Inspection: normal respiratory effort Cardio: Rate: regular rate Heart sounds: S1 normal heart sound present and S2 normal heart sound present GI: Inspection: normal to inspection and incision (One clean urine intact) DS: Data Data Completed and Pending Labs on day of discharge: Labs from last 24 hours 10/24/22 10/23/22 04:42 02:22 WBC 11.7 H RBC 2.97 L Hgb 9.3 L Hct 29.2 L MCV 98.3 MCH 31.3 MCHC 31.8 L RDW 13.2 Plt Count 177 MPV 11.1 H Immature Gran % (Auto) 0.7 H Neut % (Auto) 72.7 Lymph % (Auto) 16.0 L [place] % (Auto) 9.1 H Eos % (Auto) 1.2 Baso % (Auto) 0.3 Lymph # (Auto) 1.88 [place] # (Auto) 1.1 H Eos # (Auto) 0.1 Baso # (Auto) 0.0 Abs Immat Gran (auto) 0.08 H Absolute Neuts (auto) 8.5 H Absolute Nucleated RBC 0.0 Nucleated RBC % 0.2 RPR Non-reactive Discharge Plan Discharge Attending physician on discharge: Duran Seaman Discharging Clinician: Duran Seaman Patient Disposition: Home, Self-Care Activity: may shower, no straining and pelvic rest Diet: heart healthy Wound Care Instructions: follow printed instructions Patient Instructions: Antibiotic Form Stand Alone Forms: General Discharge Information Follow-up/Referrals: Duran Seaman MD [Physician] - Discharge Medications: New hydrocodone-acetaminophen 5-325 mg tablet 1 tablet PO Q4H PRN (Reason: pain) Qty: 30 0RF Continued 28-800 mg-mcg Tablet 1 tablet PO DAILY Date of admission: 10/23/22 01:11 Primary Care Provider: PHYSICIAN,[employer] Admitting Provider: Duran Seaman Attending physician on admission: Duran Seaman Condition: Stable
--- NOTE | 2022-10-24 07:43 | P.PNOB_ITS ---
OB - PN: Subj Subjective Date/time seen: 10/24/22 07:43 Patient comments: no complaints and pain well controlled baby status: doing well and nursing well OB - PN: Obj Data Labs 10/24/22 04:42 Labs: Laboratory Results - last 24 hr 10/23/22 10/24/22 02:22 04:42 WBC 11.7 H RBC 2.97 L Hgb 9.3 L Hct 29.2 L MCV 98.3 MCH 31.3 MCHC 31.8 L RDW 13.2 Plt Count 177 MPV 11.1 H Immature Gran % (Auto) 0.7 H Neut % (Auto) 72.7 Lymph % (Auto) 16.0 L [place] % (Auto) 9.1 H Eos % (Auto) 1.2 Baso % (Auto) 0.3 Lymph # (Auto) 1.88 [place] # (Auto) 1.1 H Eos # (Auto) 0.1 Baso # (Auto) 0.0 Abs Immat Gran (auto) 0.08 H Absolute Neuts (auto) 8.5 H Absolute Nucleated RBC 0.0 Nucleated RBC % 0.2 RPR Non-reactive OB - PN A/P Plan day: 1 Plan: routine care Time Spent With Patient Time: Total time spent is greater than 50% in coordination of care (as documented) at patient's floor/unit and/or counseling patient: Time with patient: less than 15 minutes Exam Const: General: cooperative, healthy appearing and comfortable Nutritional Appearance: average body habitus Orientation/consciousness: oriented to person, oriented to place and oriented to time Resp: Effort & Inspection: normal respiratory effort GI: Inspection: normal to inspection and incision (cdi)
--- NOTE | 2022-10-24 07:52 | WPDANLDPN2 ---
Anes-Prog Note L&D Date/Time: 10/24/22 07:52 Comfortable throughout: section Neuraxial method: spinal Epidural/Spinal procedure site: clean & non-tender Neuro status: Neuro function grossly intact. Cardiovascular status: normal Respiratory status: normal Airway patency: baseline Mental status: baseline Post-Op hydration status: normal Vital Signs: Last Vital Signs Temp 36.6 C 10/24/22 04:45 Pulse 115 H 10/24/22 04:45 Resp 20 10/24/22 04:45 BP 128/73 10/24/22 04:45 Pulse Ox 100 10/23/22 16:00 O2 Del Method Room Air 10/23/22 10:15 Pain score (VAS): 0 I/O: Intake & Output 10/23/22 10/23/22 10/24/22 15:59 23:59 07:59 Intake Total 900 2400 500 Output Total 1080 1450 1550 Balance -180 950 -1050 Post-procedural complaints: none Patient feedback: Patient satisfied with anesthetic care.
--- NOTE | 2022-10-24 07:53 | WPDANLDNPN2 ---
Anes-Prog Note L&D-Neuraxial Date/Time: 10/24/22 07:53 Neuraxial medications: intrathecal PF morphine Opiod-related complaints: none Patient feedback: Patient satisfied with post-operative pain management.
[2022-10-24 08:00] VITALS: PULSE 95; RESP 24; O2SAT 95
[2022-10-24] MEDS: POLYSACCHARIDE IRON COMPLEX 150 MG CAPSULE PO ×2 (08:20→16:26)
[2022-10-24] MEDS: DOCUSATE SODIUM 100 MG CAPSULE PO ×2 (08:20→16:27)
[2022-10-24] MEDS: SIMETHICONE 80 MG TAB.CHEW PO ×4 (08:26→19:54)
--- NOTE | 2022-10-24 08:32 | PC.NURSE ---
On 10/24/22, the student, Anthony Canada, provided care and completed [facility] documentation on this patient. I have reviewed the student's documentation and agree with the findings.
[2022-10-24] MEDS: TETANUS,DIPHTHERIA,AC PERTUSSIS ADULT (0.5 ML) BOOSTRIX IM (10:09)
--- NOTE | 2022-10-24 15:10 | PC.NURSE ---
[id number] Purposely rounded to consult for needs due to RN reporting that mother is using a nipple shield, mother has yet to initiate pumping, has attempted to breastfeed once and has bottle fed with formula. baby A is 37 wks gestation after a section delivery with sibling being transferred. Mother also has a young child at home. Mother demonstrates visual signs of being tired and distracted. Explored mother's use with the nipple shield it was confirmed that mother did not have a nipple shield. The assessment of the breast shows a wide space between her breast, they appear small and tubular with everted nipples. Reviewed milk production using stimulation from , hand expression, pumping and the possibility of a low milk supply related to lack of stimulation. Mother is okay with initiating pumping today and will call out after lunch. RN offered to assist with attempting to latch to her breast and mother consented to assistance. Mother works with her with encouragement and education. Encouraged understanding of the benefits of skin to skin (demonstrating unwrapping infant and placing upright on her chest), stimulating with massage touch, changing positions to encourage wakefulness, how to watch for early feeding cues, responsive feeding, feeding on demand (aiming for 8-12 times in 24 hours, about every 2-3 hours), milk production, building/maintaining a milk supply, duration of feeding, signs of adequate intake/output and how to record on the feeding sheet. Reviewed positioning and ear, shoulder, hip alignment, supporting the breast to facilitate a deep latch, asymmetrical latch (off-center), leading with the chin with a big, open, wide gape and body close to mother. Infant latched to the left breast using football position. was attempted multiple times and would open wide, then close mouth around the mother's nipple and hold nipple in his mouth. Nipple care reviewed with optimal latch and good positioning. Infant does not maintain latch and tone is weak at this time. Resources used to facilitate learning were used with the mom and baby guide. Mother voiced understanding of skin to skin, stimulating with massage touch, responsive feedings, talking to infant to encourage if it has been 2 -2.5 hours since the start of the last , to call if does not latch, or if there is discomfort with . Resources provided for inpatient/outpatient with the mom/baby guide. Mother voiced understanding of information and will call if there is a request for assistance. Reported to the primary RN. 1345 - Breast pump provided due to ineffective , separation of infant B and mother's desire to initiate pumping. Instructions given on cleaning, care, usage, that there should be no pain, pumping schedule for milk production, collection, and storage of human milk. Mother is encouraged to record pumping schedule on the feeding sheet. Patient was assessed for correct placement, flange size, to pump for comfort and nipple stretching/stimulation for adequate milk production every 3 hours (8 times in 24 hours) 1-2 times at night. Mother voiced understanding of the education shared along with mom and baby guide for additional resource information. Reported to the primary RN.
[2022-10-24 19:55] VITALS: BP 134/74; PULSE 102; RESP 20; TEMP 36.7
[2022-10-25] MEDS: HYDROcodone/acetaminophen (*CRX) 5-325 MG TABLET 1 TAB PO ×4 (05:27→23:32)
--- NOTE | 2022-10-25 06:26 | PM.OBPNVD ---
OB - PN: Subj Subjective Date/time seen: 10/25/22 06:26 Patient comments: no complaints and pain well controlled baby status: doing well OB - PN: Obj Data Labs 10/24/22 04:42 OB - PN A/P Plan day: 2 Plan: routine care Time Spent With Patient Time: Total time spent is greater than 50% in coordination of care (as documented) at patient's floor/unit and/or counseling patient: Time with patient: less than 15 minutes Exam Const: General: cooperative, healthy appearing, comfortable and overweight Orientation/consciousness: oriented to person, oriented to place and oriented to time Resp: Effort & Inspection: normal respiratory effort Cardio: Rate: regular rate Rhythm: regular rhythm Heart sounds: S1 normal heart sound present and S2 normal heart sound present GI: Inspection: normal to inspection and incision (Wound is clean dry and intact)
[2022-10-25 07:30] VITALS: BP 125/66; PULSE 85; RESP 16; TEMP 36.8; O2SAT 99
[2022-10-25 08:00] VITALS: PULSE 85; RESP 16; O2SAT 99
[2022-10-25] MEDS: DOCUSATE SODIUM 100 MG CAPSULE PO ×2 (08:46→17:12)
[2022-10-25] MEDS: MULTIVIT/MIN/PREN/FOL AC/IRON TABLET 1 TAB PO (08:46)
[2022-10-25] MEDS: POLYSACCHARIDE IRON COMPLEX 150 MG CAPSULE PO ×2 (08:46→17:12)
[2022-10-25] MEDS: SIMETHICONE 80 MG TAB.CHEW PO ×3 (08:46→23:32)
[2022-10-25] MEDS: IBUPROFEN 600 MG TABLET PO ×3 (08:47→23:32)
[2022-10-25 19:58] VITALS: BP 146/83; PULSE 94; RESP 18; TEMP 36.6; O2SAT 100
[2022-10-26 08:00] VITALS: BP 134/74; PULSE 102; RESP 18; TEMP 36.8; O2SAT 100
[2022-10-26] MEDS: IBUPROFEN 600 MG TABLET PO (08:07)
[2022-10-26] MEDS: MULTIVIT/MIN/PREN/FOL AC/IRON TABLET 1 TAB PO (08:08)
[2022-10-26] MEDS: HYDROcodone/acetaminophen (*CRX) 5-325 MG TABLET 1 TAB PO (08:08)
[2022-10-26] MEDS: SIMETHICONE 80 MG TAB.CHEW PO (08:08)
[2022-10-26] MEDS: DOCUSATE SODIUM 100 MG CAPSULE PO (08:08)
[2022-10-26] MEDS: POLYSACCHARIDE IRON COMPLEX 150 MG CAPSULE PO (08:08)
--- NOTE | 2022-10-26 09:09 | P.PNOB_ITS ---
OB - PN: Subj Subjective Date/time seen: 10/26/22 09:09 Patient comments: no complaints and pain well controlled baby status: doing well and nursing well OB - PN: Obj Data Labs 10/24/22 04:42 OB - PN A/P Plan day: 3 Plan: routine care, discharge home and follow up 6 weeks (4 weeks) Time Spent With Patient Time: Total time spent is greater than 50% in coordination of care (as documented) at patient's floor/unit and/or counseling patient: Time with patient: less than 15 minutes Exam Const: General: cooperative, healthy appearing, comfortable and overweight Orientation/consciousness: oriented to person, oriented to place and oriented to time HENMT: Head: normal to inspection Resp: Effort & Inspection: normal respiratory effort Cardio: Rate: regular rate Rhythm: regular rhythm Heart sounds: S1 n ormal heart sound present and S2 normal heart sound present GI: Inspection: normal to inspection and incision (Wound clean dry and intact)
[2022-10-27 09:16] VITALS: BP 135/87; PULSE 89; RESP 20; TEMP 37.2; O2SAT 100
== END 2022-10-26 11:43 | disposition home or self-care (01) | DRG 540 ==
LOC: ANHLDR 01:44 → ANHOB2 11:03
PROVIDERS: Admitting Provider Obstetrics & Gynecology; Visit Provider Obstetrics & Gynecology
DX: O42.92 Full-term premature rupture of membranes, unspecified as to length of time between rupture and onset of labor (principal); Z37.2 Twins, both liveborn; O30.043 Twin pregnancy, dichorionic/diamniotic, third trimester; Z3A.37 37 weeks gestation of pregnancy; O34.211 Maternal care for low transverse scar from previous cesarean delivery; O99.824 Streptococcus B carrier state complicating childbirth; Z23 Encounter for immunization; O77.0 Labor and delivery complicated by meconium in amniotic fluid; O69.81X0 Labor and delivery complicated by cord around neck, without compression, not applicable or unspecified; O99.02 Anemia complicating childbirth; D64.9 Anemia, unspecified; O99.344 Other mental disorders complicating childbirth; F41.1 Generalized anxiety disorder; F43.10 Post-traumatic stress disorder, unspecified
CPT/HCPCS: 36415; 84112; 85025; 86592; 86850; 86900; 86901; 90471; 90686; 90715; A9270; G0008; J0131; J0290; J0456; J0690; J1200; J2210; J2274; J2590; J2795; J3105; J7120

== ENCOUNTER 2022-10-23 13:30 | Outpatient (RCR) | payer OTHER, SELFPAY ==
[2022-09-11 14:43] VITALS: BP 119/71; PULSE 118
--- NOTE | 2022-09-18 14:15 | PC.NURSE ---
Pt FHR for baby A non reactive. Called Dr. Greg Lawrence and orders for a BPP. If BPP is 8/8 pt can be d/c home.
[2022-09-25 15:30] VITALS: BP 118/66; PULSE 114
[2022-10-02 13:58] VITALS: BP 127/81; PULSE 106
[2022-10-09 13:22] VITALS: BP 124/69; PULSE 116
[2022-10-09 15:15] VITALS: BP 124/69; PULSE 81
[2022-10-16 14:38] VITALS: BP 121/80; PULSE 105
--- NOTE | ~2022-10-23 | US_ITS ---
EXAMINATION: US OB BPP wo non-stress DATE: 09/18/2022 15:12 INDICATION: Twin during third trimester presenting with nonreactive nonstress test. TECHNIQUE: Real-time ultrasound of the pelvis was performed. The interpreting radiologist was not pre sent for the study. COMPARISON: None. FINDINGS: There are two living fetuses. The placenta(s) is/are . The amniotic fluid volume is normal. Fetus A on maternal left: Presentation is vertex. cardiac activity and movement are noted. heart rate is 150 beats per minute (bpm). Biophysical profile performed by the technologist: breathing (30 sec sustained breathing in 30 minutes): 2 out of 2 movement (3 gross body movements in 30 minutes): 2 out of 2 tone (one episode of uwryiek-moueclewq-jiyofmv limb movement): 2 out of 2 Amniotic fluid pocket (2 cm): 2 out of 2 Total score: 8 out of 8 Fetus B on maternal right: Presentation is breech. cardiac activity and movement are noted. heart rate is 149 bpm. Biophysical profile performed by the technologist: breathing (30 sec sustained breathing in 30 minutes): 2 out of 2 movement (3 gross body movements in 30 minutes): 2 out of 2 tone (one episode of naddrrg-esxpxouuj-xcihpxw limb movement): 2 out of 2 Amniotic fluid pocket (2 cm): 2 out of 2 Total score: 8 out of 8 IMPRESSION: 1. Living twin fetuses. 2. Biophysical profile 8 out of 8 for fetus A and 8 out of 8 for fetus B. Reviewed, dictated and finalized at location A. L FILLER
--- NOTE | ~2022-10-23 | US_ITS ---
EXAMINATION: US OB BPP multi gestation DATE: 09/25/2022 15:28 INDICATION: Third trimester twin with nonreactive nonstress test. TECHNIQUE: Real-time ultrasound of the pelvis was performed. The interpreting radiologist was not pre sent for the study. COMPARISON: 09/18/2022 FINDINGS: There are two living fetuses. Fetus A is on maternal right and fetus B is on maternal left The placen ta(s) is/are posterior. The amniotic fluid volume is normal. Amniotic fluid index of 10.5 cm which is normal. Fetus A: Presentation is breech. cardiac activity and movement are noted. heart rate is 145 beats per minute (bpm). Biophysical profile performed by the technologist: breathing (30 sec sustained breathing in 30 minutes): 2 out of 2 movement (3 gross body movements in 30 minutes): 2 out of 2 tone (one episode of ptaynlt-zubfbgpzr-vcbubfv limb movement): 2 out of 2 Amniotic fluid pocket (2 cm): 2 out of 2 Total score: 8 out of 8 Fetus B: Presentation is vertex. cardiac activity and movement are noted. heart rate is 142 bpm. Biophysical profile performed by the technologist: breathing (30 sec sustained breathing in 30 minutes): 2 out of 2 movement (3 gross body movements in 30 minutes): 2 out of 2 tone (one episode of yznwytt-hcesutdbm-pyhxehe limb movement): 2 out of 2 Amniotic fluid pocket (2 cm): 2 out of 2 Total score: 8 out of 8 IMPRESSION: 1. Living twin fetuses. 2. Normal amniotic fluid index of 10.5 cm. 3. Biophysical profile 8 out of 8 for fetus A and 8 out of 8 for fetus B. Reviewed, dictated and finalized at location L. S PULLER HELPER
--- NOTE | ~2022-10-23 | US_ITS ---
EXAMINATION: US OB BPP wo non-stress DATE: 10/09/2022 14:35 INDICATION: Biophysical profile and amniotic fluid assessment during third trimester twin TECHNIQUE: Real-time ultrasound of the pelvis was performed. COMPARISON: 09/25/2022 FINDINGS: There are two living fetuses. The placenta(s) is/are posterior. The amniotic fluid volume is 10.7 cm which is normal. Fetus A: Presentation is transverse with head to the maternal left. heart rate is 147 beats per minute ( bpm). Biophysical profile performed by the technologist: breathing (30 sec sustained breathing in 30 minutes): 2 out of 2 movement (3 gross body movements in 30 minutes): 2 out of 2 tone (one episode of cpwnlxl-epqcifvry-glydvts limb movement): 2 out of 2 Amniotic fluid pocket (2 cm): 2 out of 2 Total score: 8 out of 8 Fetus B: Presentation is breech. heart rate is 144 bpm. Biophysical profile performed by the technologist: breathing (30 sec sustained breathing in 30 minutes): 2 out of 2 movement (3 gross body movements in 30 minutes): 2 out of 2 tone (one episode of wvmbkyy-hkqjjvket-ozknvsg limb movement): 2 out of 2 Amniotic fluid pocket (2 cm): 2 out of 2 Total score: 8 out of 8 IMPRESSION: 1. Living twin fetuses. 2. Normal placenta(s). 3. Biophysical profile 8 out of 8 for fetus A and 8 out of 8 for fetus B. Reviewed, dictated and finalized at location A. RAM CHECKER
== END 2022-11-03 07:45 | disposition home or self-care (01) ==
LOC: ANHOBOP 13:30
PROVIDERS: PCP Obstetrics & Gynecology; Visit Provider Obstetrics & Gynecology
DX: O30.003 Twin pregnancy, unspecified number of placenta and unspecified number of amniotic sacs, third trimester (principal); Z3A.32 32 weeks gestation of pregnancy; Z3A.33 33 weeks gestation of pregnancy; Z3A.34 34 weeks gestation of pregnancy; Z3A.35 35 weeks gestation of pregnancy; Z3A.36 36 weeks gestation of pregnancy
CPT/HCPCS: 59025; 76819

== ENCOUNTER 2022-10-30 20:35 | Observation (INO) | payer OTHER, SELFPAY ==
[2022-10-30] VITALS (13 sets, daily range): BP systolic 131–135; BP diastolic 55–84; PULSE 80; RESP 16; O2SAT 98–100
--- NOTE | ~2022-10-30 | CT_ITS ---
EXAMINATION: CT abdomen pelvis w con DATE: 10/30/2022 21:54 INDICATION: Periumbillical abdominal pain status post delivery of twins 4 days ago. TECHNIQUE: Computed tomography (CT) of the abdomen and pelvis was performed with 100 mL Omnipaque-350 intravenous contrast. Automated exposure control and iterative reconstruction technique were employe d. The dose-length product was 872.21 mGy-cm. COMPARISON: None. FINDINGS: Lower thorax: Unremarkable Liver: Hepatomegaly. Small volume perihepatic fluid. Biliary/Gallbladder: Gallbladder is normal. No bile duct dilation. Pancreas: No mass or duct dilation. Spleen: Small volume perisplenic fluid. Adrenals:No mass. Kidneys: No mass, stone, or hydronephrosis. GI tract: Mild distal esophageal and gastric wall edema as can be seen with esophagitis/gastritis. No small or large bowel dilation. Normal appendix. Mesentery/Peritoneum: Small volume free fluid. No free air.. Retroperitoneum: No mass. Pelvis: Enlarged uterus with gas and heterogeneous nonenhancing material in the endometria l cavity. No definite breakdown of the lower uterine segment incision. Small fluid collection between the bladder and uterus measuring 2.5 x 4.3 cm. Ovoid 1.5 cm hyperenhancing or hyperdense focus in th e region of the right ovary versus contrast blush. Soft Tissues: Subcutaneous edema surrounding the umbilicus and extending inferiorly along the midline anterior lower abdomen. Small fat-containing umbilical hernia with mild inflammatory stranding/edema . Normal-appearing low transverse incision. Bones: No acute osseous finding. IMPRESSION: 1. No direct evidence of uterine dehiscence. 2. Small hyperenhancing or hyperdense focus associated with the right ovary. An ovarian cyst is favor ed but a small blush of extravasated contrast or pseudoaneurysm would appear similarly. 3. Small volume abdominopelvic fluid 4. Small bladder flap hematoma 5. Nonenhancing heterogeneous endometrial cavity material with air, likely normal status post cesarea n section, unless accompanied by vaginal bleeding or signs of infection. 6. Moderate periumbilical/anterior abdominal wall thickening and subcutaneous edema, separate from th e low transverse incision, correlate for findings of infection/contusion. Reviewed, dictated and finalized at location [facility] IMPRESSION: 1. No direct evidence of uterine dehiscence. 2. Small hyperenhancing or hyperdense focus associated with the right ovary. An ovarian cyst is favored but a small blush of extravasated contrast or pseudoan eurysm would appear similarly. 3. Small volume abdominopelvic fluid 4. Small bladder flap hematoma 5. Nonenhancing heterogeneous endometrial cavity material with air, likely norm al status post section, unless accompanied by vaginal bleeding or sign s of infection. 6. Moderate periumbilical/anterior abdominal wall thickening and subcutaneous e amanuel, separate from the low transverse incision, correlate for findings of infe ction/contusion.
--- NOTE | 2022-10-30 20:47 | PC.NURSE ---
EDP at bedside to assess pt.
--- NOTE | 2022-10-30 20:52 | ED.ABDPAIN ---
HPI - Abdominal Pain General Chief Complaint: Abdominal Pain Stated Complaint: abd pain Time Seen by Provider: 10/30/22 20:40 History of Present Illness HPI narrative: Patient is a 22-year-old female who is PPD X4 from uncomplicated with twin here for evaluation of abdominal pain. Patient states that her pain began yesterday and is concentrated around her umbilicus. States that she attempted her [place] and ibuprofen without relief of her pain. The pain is described as a cramp. She also notes a mild headache. She denies any nausea, vomiting, fevers or chills, diarrhea or constipation, dysuria, urgency or frequency, leg swelling. Related Data Home Medications Medication Instructions Recorded Confirmed vit no.133-ferrous 1 tablet PO DAILY 03/23/21 03/12/22 fumarate 28 mg-folic acid 800 mcg tablet () Allergies Allergy/AdvReac Type Severity Reaction Status Date / Time No Known Allergies Allergy Verified 10/30/22 20:48 Review of Systems Review of Systems: Gen.: Denies fevers or chills Eyes: Denies eye pain or visual change ENT: Denies congestion Respiratory: Denies shortness of breath or cough CV: Denies chest pain or palpitations GI: Reports abdominal pain. Denies nausea, emesis or diarrhea : denies burning, urgency, frequency or hematuria Musculoskeletal: Denies back pain or muscle pain Neuro: Reports headache. Denies numbness, tingling, weakness or focal weakness Skin: Denies rash Except as documented, all other systems reviewed and negative PMFSH Past Medical History Medical History Anemia Bacterial vaginosis in Cephalopelvic disproportion macrosomia Generalized anxiety disorder Glucose tolerance test abnormal Normal 3 hour glucose tolerance test Heterozygous MTHFR mutation C677T Maternal varicella, non-immune Obesity induced hypertension PTSD (post-traumatic stress disorder) Rubella non-immune status, antepartum Suppression of menstruation Surgical History Surgical History Delivery by section (06/02/21) primary c/s due to gestational HTN Family History Family History Grandparent High cholesterol Social History Social History Smoking status: Never smoker Second hand tobacco smoke exposure: No Alcohol intake: never Substance use: never Substance use type: does not use Lack of Transportation: No Lack of Food: Never True Current Housing: I Have Housing Concerned About Future Housing: No Difficulty Paying Gas/Electric Bills: No Difficulty Paying for Meds: No Currently Unemployed: YES Education: High School Diploma/GED Difficulty w/ Childcare or Family Care: No Living arrangements: other Additional living arrangements comments: single Occupation/Education: other Additional occupation/education comments: stay at home mom Gender identity (if verbalized by the patient): Female Sexual Orientation (if Verbalized by the Patient): Straight or Heterosexual Spiritual care concerns: No Agree to blood products: Yes Exam Narrative: APPEARANCE: Well appearing, no pain in distress, well-nourished. Head: Normocephalic and atraumatic. EYES: PERRLA/EOMI, conjunctivae clear NOSE: No nasal drainage EARS: External ear normal in appearance THROAT: Oropharynx is clear. Mucous membranes are moist. NECK: Supple. No adenopathy, no masses. RESPIRATORY: Airway patent, respirations nonlabored. Clear to auscultation bilaterally, no rales, rhonchi, wheezing. CARDIOVASCULAR: Regular rate and rhythm without murmurs, rubs, or gallops. ABDOMINAL: Tender with deep palpation around the umbilicus. There is an area of redness around her umbilicus. No crepitus. No hernia p
[2022-10-30 21:12] LABS: Basophils Percent Auto 0.2 % (0.2-1.2); Eosinophils Absolute Auto 0.2 K/mm3 (0-0.3); Eosinophils Percent Auto 2.1 % (0-4.4); Hematocrit 30.3 % (37.0-47.0); Hemoglobin 9.6 g/dL (12.0-15.0); Immature Granulocyte Absolute 0.11 K/mm3 (0.00-0.031); Immature Granulocyte Percent A 1.2 % (0-0.5); Lymphocytes Absolute Auto 1.46 K/mm3 (0.9-3.2); Lymphocytes Percent Auto 15.6 % (18.3-44.2); Mean Corpuscular HGB Conc 31.7 g/dl (32-36); Mean Corpuscular Hemoglobin 31.4 pg (26-34); Mean Platelet Volume 8.9 fl (7.4-10.4); Monocytes Absolute Auto 0.7 K/mm3 (0.1-0.6); Monocytes Percent Auto 7.7 % (2.6-8.5); Neutrophils Absolute Auto 6.8 K/mm3 (1.3-6.7); Neutrophils Percent Auto 73.2 % (45.5-73.1); Platelet Count Result 347 k/mm3 (150-375); Red Blood Count 3.06 M/mm3 (4.2-5.4); Red Cell Distribution Width 13.8 % (11.5-14.5); White Blood Count 9.4 K/mm3 (4.5-10.0)
[2022-10-30 21:27] LABS: Chloride 106 mmol/L (98-107)
[2022-10-30 21:34] LABS: Add Urine Microscopic? YES; Appearance Urine Slightly Cloudy (Clear); Bilirubin Urine Negative (Negative); Blood Urine 3+ (Negative); Color Urine Brown (Yellow); Glucose Urine UA Negative (Negative); Ketones Urine Negative (Negative); Leukocyte Esterase Ur 1+ LEU/UL (Negative); Nitrate Urine Negative (Negative); Protein Urine 1+ mg/dL (Negative); Urobilinogen Urine 0.2 mg/dL (<2.0)
[2022-10-30 21:37] LABS: Alanine Aminotransferase 24 U/L (6-35); Albumin Level 3.3 g/dL (3.5-5.1); Alkaline Phosphatase 212 U/L (38-126); Anion Gap 5 mmol/L (8-16); Aspartate Amino Transferase 34 U/L (14-36); Bilirubin,Total 0.6 mg/dL (0.2-1.3); Blood Urea Nitrogen 8 mg/dL (7-17); Calcium 8.3 mg/dL (8.4-10.2); Carbon Dioxide 26 mmol/L (22-30); Estimated CRCL calculation 141 ml/min; Estimated Glomerular Filt Rate > 60; Glucose 83 mg/dL (65-110); Lipase 25 U/L (23-300); Sodium 137 mmol/L (137-145)
[2022-10-30 21:38] LABS: Mucus Urine Rare /lpf; RBC Urine 51-75 /hpf (0-2); Squamous Epithelial Cell Urine Rare /hpf (Few); WBC Urine 51-75 /hpf
[2022-10-30] MEDS: LACTATED RINGERS 1,000 ML 999 ML IV CONT (22:13)
--- NOTE | 2022-10-30 23:07 | PC.NURSE ---
Patient report given to SHY Cortez. All questions answered and care of patient transferred.
[2022-10-30] MEDS: MORPHINE SULFATE (*CRX) 4 MG/ML INJ IV PUSH (23:20)
[2022-10-31] VITALS (7 sets, daily range): BP systolic 126; BP diastolic 86; PULSE 64; TEMP 36.7; O2SAT 97–100
[2022-10-31] MEDS: LACTATED RINGERS 1,000 ML 150 ML IV CONT (00:37)
[2022-10-31 01:10] LABS: Influenza A QL RT-PCR Negative (Negative); Influenza B QL RT-PCR Negative (Negative); SARS-CoV-2 RNA PCR Negative
--- NOTE | 2022-10-31 01:13 | PC.NURSE ---
This patient, Radha Payne, was received from ER per wheelchair to room 116. Patient/family oriented to unit policies and routines
[2022-10-31 05:47] LABS: Basophils Percent Auto 0.3 % (0.2-1.2); Eosinophils Absolute Auto 0.3 K/mm3 (0-0.3); Hematocrit 28.2 % (37.0-47.0); Hemoglobin 8.9 g/dL (12.0-15.0); Immature Granulocyte Absolute 0.07 K/mm3 (0.00-0.031); Immature Granulocyte Percent A 0.8 % (0-0.5); Lymphocytes Absolute Auto 1.67 K/mm3 (0.9-3.2); Mean Corpuscular HGB Conc 31.6 g/dl (32-36); Mean Corpuscular Hemoglobin 31.3 pg (26-34); Mean Corpuscular Volume 99.3 fl (80-100); Mean Platelet Volume 8.6 fl (7.4-10.4); Monocytes Absolute Auto 0.8 K/mm3 (0.1-0.6); Neutrophils Absolute Auto 6.4 K/mm3 (1.3-6.7); Neutrophils Percent Auto 68.9 % (45.5-73.1); Nucleated Red Blood Cells Perc 0.2 % (0.0-0.2); Platelet Count Result 294 k/mm3 (150-375); Red Blood Count 2.84 M/mm3 (4.2-5.4); Red Cell Distribution Width 13.9 % (11.5-14.5); White Blood Count 9.3 K/mm3 (4.5-10.0)
--- NOTE | 2022-10-31 07:15 | PM.IMHP ---
H&P: HPI History of Present Illness Date/Time: 10/31/22 07:15 Chief Complaint: Abdominal pain Narrative: a 22 year the female who recently had the section for twins. She had some onset of severe pain in the periumbilical area. CT shows indeed small umbilical hernia with no strangulation. She has a normal white count her urine was somewhat clouded however it was not a clean-catch and she has had the previous baby. She notes a normal a normal appetite PMFSH Past Medical History Medical History Anemia Bacterial vaginosis in Cephalopelvic disproportion macrosomia Generalized anxiety disorder Glucose tolerance test abnormal Normal 3 hour glucose tolerance test Heterozygous MTHFR mutation C677T Maternal varicella, non-immune Obesity induced hypertension PTSD (post-traumatic stress disorder) Rubella non-immune status, antepartum Suppression of menstruation Surgical History Surgical History Delivery by section (06/02/21) primary c/s due to gestational HTN Family History Family History Grandparent High cholesterol Social History Social History Smoking status: Never smoker Second hand tobacco smoke exposure: No Alcohol intake: never Substance use: never Substance use type: does not use Lack of Transportation: No Lack of Food: Never True Current Housing: I Have Housing Concerned About Future Housing: No Difficulty Paying Gas/Electric Bills: No Difficulty Paying for Meds: No Currently Unemployed: YES Education: High School Diploma/GED Difficulty w/ Childcare or Family Care: No Living arrangements: other Additional living arrangements comments: single Occupation/Education: other Additional occupation/education comments: stay at home mom Gender identity (if verbalized by the patient): Female Sexual Orientation (if Verbalized by the Patient): Straight or Heterosexual Spiritual care concerns: No Agree to blood products: Yes Meds Home Medications and Allergies Home Medications Medication Instructions Recorded Confirmed Type vit no.133-ferrous 1 tablet PO DAILY 03/23/21 03/12/22 History fumarate 28 mg-folic acid 800 mcg tablet () hydrocodone 5 mg-acetaminophen 325 1 tablet PO Q4H PRN pain #30 tabs 10/23/22 Rx mg tablet Allergies Allergy/AdvReac Type Severity Reaction Status Date / Time No Known Allergies Allergy Verified 10/30/22 20:48 Vital Signs Vital Signs - 24 hr 10/30/22 20:36 10/31/22 00:02 10/30/22 20:42 Temperature 98.0 F Pulse Rate 80 Respiratory Rate 16 Blood Pressure 131/55 L Pulse Oximetry 99 100 Oxygen Delivery Room Air 10/30/22 20:45 10/30/22 20:46 10/30/22 21:00 Temperature Pulse Rate Respiratory Rate Blood Pressure 135/84 Pulse Oximetry 99 99 99 Oxygen Delivery 10/30/22 21:16 10/30/22 21:30 10/30/22 22:03 Temperature Pulse Rate Respiratory Rate Blood Pressure Pulse Oximetry 100 98 98 Oxygen Delivery 10/30/22 22:15 10/30/22 22:30 10/30/22 22:45 Temperature Pulse Rate Respiratory Rate Blood Pressure Pulse Oximetry 99 99 99 Oxygen Delivery 10/30/22 23:00 10/30/22 23:57 10/31/22 00:00 Temperature Pulse Rate Respiratory Rate Blood Pressure Pulse Oximetry 99 98 97 Oxygen Delivery 10/31/22 00:22 10/31/22 00:30 10/31/22 00:51 Temperature Pulse Rate Respiratory Rate Blood Pressure Pulse Oximetry 100 97 98 Oxygen Delivery 10/31/22 01:00 10/31/22 01:25 Temperature Pulse Rate 64 Respiratory Rate Blood Pressure 126/86 Pulse Oximetry 99 Oxygen Delivery Exam Const: General: cooperative, healthy
--- NOTE | 2022-10-31 07:21 | PM.DS ---
DS: Admitting Diagnosis Discharge Date 10/31/2022 Admitting Diagnosis periumbilical hernia/UTI DS: Discharge Diagnosis Discharge Diagnosis (1) Periumbilical hernia: Code(s): K42.9 - Umbilical hernia without obstruction or gangrene Status: Acute (2) Urinary tract infection: Code(s): N39.0 - Urinary tract infection, site not specified Status: Acute (3) Periumbilical abdominal pain: Code(s): R10.33 - Periumbilical pain Status: Acute DS: Summary Hospital Course Reason for hospitalization: patient was admitted with abdominal pain Hospital Course: patient came to the ER and had a CT which showed a small paraumbilical hernia. Her white count was normal but her urine looks consistent with possible UTI. She was given IV fluids IV antibiotics. She remained stable for her 24hours stay. A binder was placed over the abdomen. She was discharged home on her previous pain medication and Keflex 500 t.i.d. for 7 days. She to follow-up in 2 weeks time for postop care. We will get a surgical consult in the meantime for this periumbilical hernia and repair that with the general surgeon and 2 tubal subcutaneously and future she was told to avoid straining and lifting Time Spent with Patient Time attestation: Total time spent providing and/or coordinating discharge services: Exam Const: General: cooperative, healthy appearing, comfortable and overweight Orientation/consciousness: oriented to person, oriented to place and oriented to time HENMT: Head: normal to inspection Resp: Effort & Inspection: normal respiratory effort Cardio: Rate: regular rate Rhythm: regular rhythm Heart sounds: S1 normal heart sound present and S2 normal heart sound present GI: Inspection: normal to inspection, incision ( clean dry and intact), obesity and other ( small umbilical hernia) Auscultation: normal bowel sounds DS: Data Data Completed and Pending Labs on day of discharge: Labs from last 24 hours 10/31/22 10/31/22 10/30/22 05:42 00:31 21:16 WBC 9.3 RBC 2.84 L Hgb 8.9 L Hct 28.2 L MCV 99.3 MCH 31.3 MCHC 31.6 L RDW 13.9 Plt Count 294 MPV 8.6 Immature Gran % (Auto) 0.8 H Neut % (Auto) 68.9 Lymph % (Auto) 18.0 L [place] % (Auto) 9.0 H Eos % (Auto) 3.0 Baso % (Auto) 0.3 Lymph # (Auto) 1.67 [place] # (Auto) 0.8 H Eos # (Auto) 0.3 Baso # (Auto) 0.0 Abs Immat Gran (auto) 0.07 H Absolute Neuts (auto) 6.4 Absolute Nucleated RBC 0.0 Nucleated RBC % 0.2 Sodium Potassium Chloride Carbon Dioxide Anion Gap BUN Creatinine Estim Creat Clear Calc Estimated GFR Glucose Calcium Total Bilirubin AST ALT Alkaline Phosphatase Total Protein Albumin Lipase Urine Color Brown H Urine Appearance Slightly cloudy Urine pH 7.0 Ur Specific [place] 1.020 Urine Protein 1+ H Urine Glucose (UA) Negative Urine Ketones Negative Ur Blood (Man) 3+ H Urine Nitrate Negative Urine Bilirubin Negative Urine Urobilinogen 0.2 Leukocyte Esterase Rfl 1+ H Urine RBC 51-75 H Urine WBC 51-75 H Ur Squamous Epith Cells Rare Urine Mucus Rare Influenza A (RT-PCR) Negative Influenza B (RT-PCR) Negative SARS-CoV-2 RNA (RT-PCR) Negative 10/30/22 10/30/22 21:03 21:03 WBC 9.4 RBC 3.06 L Hgb 9.6 L Hct 30.3 L MCV 99.0 MCH 31.4 MCHC 31.7 L RDW 13.8 Plt Count 347 D MPV 8.9 Immature Gran % (Auto) 1.2 H Neut % (Auto) 73.2 H Lymph % (Auto) 15.6 L [place] % (Auto) 7.7 Eos % (Auto) 2.1 Baso % (Auto) 0.2 Lymph # (Auto) 1.46 [place] # (Auto) 0.7 H Eos # (Auto) 0.2 Baso # (Auto) 0.0 Abs Immat Gran (auto) 0.11 H Absolute Neuts (auto) 6.8 H Absolute Nucleated RBC 0.0 Nucleated RBC % 0.0 Sodium 137 Potassium 4.0 Chloride 106 Carbon Dioxide 26 Anion Gap 5 L BUN 8 D Creatinine 0.60 L Alyssa
[2022-10-31] MEDS: HYDROcodone/acetaminophen (*CRX) 5-325 MG TABLET 1 TAB PO (10:24)
[2022-10-31] MEDS: IBUPROFEN 600 MG TABLET PO (10:24)
== END 2022-10-31 12:15 | disposition home or self-care (01) ==
LOC: ANHED 10-31 00:25 → ANHOBPP 10-31 00:49
PROVIDERS: Admitting Provider Obstetrics & Gynecology; Emergency Provider Physician Assistant; Visit Provider Obstetrics & Gynecology
DX: O90.89 Other complications of the puerperium, not elsewhere classified (principal); R10.33 Periumbilical pain; R51.9 Headache, unspecified; O86.20 Urinary tract infection following delivery, unspecified; N39.0 Urinary tract infection, site not specified; B95.2 Enterococcus as the cause of diseases classified elsewhere; Z20.822 Contact with and (suspected) exposure to COVID-19; Z79.899 Other long term (current) drug therapy
CPT/HCPCS: 36415; 74177; 80053; 81001; 83690; 85025; 87086; 87147; 87181; 87186; 87636; 96361; 96365; 96375; 99285; A9270; G0378; G0379; J0131; J0696; J2270; J7120; Q9967

== ENCOUNTER 2022-12-31 00:46 | Day surgery (SDC) | payer OTHER, SELFPAY ==
[2022-12-19 16:19] VITALS: BMI 34.9
--- NOTE | 2022-12-19 16:28 | PC.NURSE ---
Addendum entered by Hailey Walsh RN 12/19/22 16:42: Informed patient need to shower with hibiclens antibacterial soap morning of surgery. Original Note: Report to the Outpatient Waiting Room, entrance under the [facility] located off [facility], at time 1000 on date 12/31/22. Planned Procedure Time: 1200. Time changes happen often and if your time is changed the preop area will call you the afternoon before. - You and your visitor will be asked to self-screen and do not enter if you have any COVID symptoms. - Only one visitor is requested with a max of two and NO children visitors are allowed at this time. - The patient visitor may be requested to leave or wait in car when not with patient due to distancing restrictions. - A mask is optional within the hospital at this time. Patients may have clear liquids (water, carbonated beverages, clear teas, apple juice) until 3 hours prior to surgery with a maximum of 20 ounces. 0900 - No food from midnight until time of surgery - Infants may have breast milk until 4 hours before surgery, infant formula 6 hours prior to surgery. - Children will be allowed to drink immediately following surgery. If applicable, please bring a bottle or sippy cup to assist with drinking. Juice, water, soda, and popsicles are readily available. For infants on formula, please bring formula the day of surgery. Pacifiers are allowed. Take the following medications with a SIP of water the morning of surgery: N/A DO NOT STOP ANY OF YOUR OTHER PRESCRIPTION MEDICATIONS PRIOR TO SURGERY ?EXCEPT THE FOLLOWING Medications to discontinue per physician N/A Date to take last dose N/A Please no make-up, nail maldivian, hairspray, perfume, deodorant, or body powder the day of surgery. No jewelry (including any body piercings) or valuables the day of surgery, leave them at home. Please take a shower or bath the night before, or the morning of, surgery with an antibacterial soap. Wear comfortable, loose fitting clothing. Children are encouraged to wear pajamas. - Jewelry must be removed prior to entering the operating room. Rings and piercings that are not removed may be cut off. - The hospital will not accept responsibility for valuables. - Please leave all valuables, including medications, at home the day of surgery. If you are going home after surgery, a licensed lifter/driver must drive you home. - NO public transportation without another adult if you receive anesthesia. - We recommend that an adult stay with you for 24 hours following discharge. - We also recommend that you do not drive, make important decision, drink alcoholic beverages, or take any drugs that were not prescribed by your health care provider for at least 24 hours after your discharge time. For Pediatric surgeries, we recommend two adults accompany the child home. Follow any additional instructions given to you from your surgeon. If you or anyone in your household have experienced Covid symptoms in the past week, please notify your surgeon or the nurse liaison at the phone number below for possible testing. Telephone instructions given to Radha Payne and asked if any additional questions and then verbalized understanding. Patient advised to call surgeon office or pre surgery nurse liaison [phone] if any additional questions.
--- NOTE | 2022-12-27 16:18 | PM.IMHP ---
H&P: HPI History of Present Illness Date/Time: 12/27/22 16:18 Chief Complaint: desires sterilization with hernia Narrative: this is a 22-year-old female who desires permanent and irreversible sterilization. She is adamant that she wants no further kids and alternatives including not exclusive of pills, patches, injections long-acting contraception etc. were reviewed. She understands this be a permanent irreversible procedure. She had all questions answered and signed the tubal consent. [facility] Past Medical History Medical History Anemia Bacterial vaginosis in Cephalopelvic disproportion macrosomia Generalized anxiety disorder Glucose tolerance test abnormal Normal 3 hour glucose tolerance test Heterozygous MTHFR mutation C677T Maternal varicella, non-immune Obesity induced hypertension PTSD (post-traumatic stress disorder) Rubella non-immune status, antepartum Suppression of menstruation Surgical History Surgical History Delivery by section (06/02/21) primary c/s due to gestational HTN x2 on 05/2021 & 10/2022 Family History Family History Grandparent High cholesterol Other Diabetes mellitus Hypertension Social History Social History Smoking status: Never smoker Second hand tobacco smoke exposure: No Alcohol intake: never Substance use: never Substance use type: does not use Lack of Transportation: No Lack of Food: Never True Current Housing: I Have Housing Concerned About Future Housing: No Difficulty Paying Gas/Electric Bills: No Difficulty Paying for Meds: No Currently Unemployed: YES Education: High School Diploma/GED Difficulty w/ Childcare or Family Care: No Living arrangements: with family Additional living arrangements comments: single Occupation/Education: unemployed Additional occupation/education comments: stay at home mom Gender identity (if verbalized by the patient): Female Sexual Orientation (if Verbalized by the Patient): Straight or Heterosexual Spiritual care concerns: No Agree to blood products: Yes Meds Home Medications and Allergies Home Medications Medication Instructions Recorded Confirmed Type No Home Medications 12/19/22 12/19/22 History Allergies Allergy/AdvReac Type Severity Reaction Status Date / Time No Known Allergies Allergy Verified 12/19/22 16:17 Exam Const: General: cooperative, healthy appearing and comfortable Nutritional Appearance: overweight Orientation/consciousness: oriented to person, oriented to place and oriented to time HENMT: Head: normal to inspection Resp: Effort & Inspection: normal respiratory effort Cardio: Rate: regular rate Rhythm: regular rhythm Heart sounds: S1 normal heart sound present and S2 normal heart sound present GI: Inspection: normal to inspection : External Female Exam: normal external appearance Speculum Exam - Vagina: normal appearance of the vagina Speculum Exam - Cervix: normal appearance of the cervix Bimanual exam- vagina & uterus: enlarged Bimanual Exam- Adnexa, other: normal adnexae Assessment and Plan Assessment and plan (1) Sterilization: Code(s): Z30.2 - Encounter for sterilization Status: Acute Plan laparoscopic bilateral tubal ligation
[2022-12-31] VITALS (16 sets, daily range): BP systolic 96–126; BP diastolic 59–89; PULSE 46–76; RESP 12–16; TEMP 36.1; O2SAT 95–100
--- NOTE | 2022-12-31 07:05 | WPDHPUPDATE1 ---
History and Physical Update Update Date/Time: 12/31/22 07:05 History and Physical has been reviewed, including an updated exam of the patient. There are NO changes in the patient's condition. Risks, benefits, and alternatives have been discussed and questions answered. Patient agrees to proceed with procedure.
--- NOTE | 2022-12-31 08:27 | WPDANESEPPF ---
Anes - Initial Pre Proc Eval Procedure: Operation Date: 12/31/22 12:00 Proposed Procedures p Umbilical Hernia Repair Possible Mesh - Warren Paredes DO s Laparoscopic Bilateral Tubal Sterilization - Duran Lawrence MD Date/Time: 12/31/22 08:27 Surgeon: Warren Paredes DO Pre Op Diagnosis: umbilical hernia, sterilization Patient Data Age: 22 Gender: F Height: 1.55 m Weight: 84 kg Allergies Allergy/AdvReac Type Severity Reaction Status Date / Time No Known Allergies Allergy Verified 12/31/22 10:12 Home Medications Medication Instructions Recorded Confirmed Type No Home Medications 12/19/22 12/31/22 History Patient hx anesthesia problems: none Family hx anesthesia problems: none Results Review: All pre-operative results and documents have been reviewed as part of the pre-operative evaluation. [facility] Past Medical History Medical History (Updated 12/31/22 @ 08:27 by Jaron Denny DO) ADHD Anemia Anxiety Bacterial vaginosis in Cephalopelvic disproportion macrosomia Generalized anxiety disorder Glucose tolerance test abnormal Normal 3 hour glucose tolerance test Heterozygous MTHFR mutation C677T Maternal varicella, non-immune Obesity induced hypertension PTSD (post-traumatic stress disorder) Rubella non-immune status, antepartum Suppression of menstruation Surgical History Surgical History Delivery by section (06/02/21) primary c/s due to gestational HTN x2 on 05/2021 & 10/2022 Family History Family History Grandparent High cholesterol Other Diabetes mellitus Hypertension Social History Social History Smoking status: Never smoker Second hand tobacco smoke exposure: No Alcohol intake: never Substance use: never Substance use type: does not use Lack of Transportation: No Lack of Food: Never True Current Housing: I Have Housing Concerned About Future Housing: No Difficulty Paying Gas/Electric Bills: No Difficulty Paying for Meds: No Currently Unemployed: YES Education: High School Diploma/GED Difficulty w/ Childcare or Family Care: No Living arrangements: with family Additional living arrangements comments: single Occupation/Education: unemployed Additional occupation/education comments: stay at home mom Gender identity (if verbalized by the patient): Female Sexual Orientation (if Verbalized by the Patient): Straight or Heterosexual Spiritual care concerns: No Agree to blood products: Yes Anes - Eval Final PreProcedure Day of Procedure 12/31/22 08:27 Patient weight: obese Heart: regular rate and rhythm Lungs: clear to auscultation Airway: Mallampati scale class II Neurological: alert and oriented Last oral intake: >/= 8 hours ASA classification: II Emergent: no Anesthetic plan: proceed Anesthesia type and monitoring: general ETT and standard monitoring Results Review: All pre-operative results and documents have been reviewed as part of the pre-operative evaluation. Informed Consent: The patient's anesthetic plan and its attendant risks and benefits were discussed with the patient/family/POA. Questions were solicited and answers provided to the satisfaction of the patient/family/POA.
[2022-12-31] MEDS: LACTATED RINGERS 1,000 ML 30 ML IV CONT ×2 (10:43→13:12)
[2022-12-31] MEDS: ACETAMINOPHEN 500 MG TABLET 1000 MG PO (11:11)
[2022-12-31] MEDS: KETOROLAC 15 MG/ML VIAL (*BKC) IV PUSH (11:11)
--- NOTE | 2022-12-31 11:48 | WPDHPUPDATE1 ---
History and Physical Update Update Date/Time: 12/31/22 11:48 History and Physical has been reviewed, including an updated exam of the patient. There are NO changes in the patient's condition. Risks, benefits, and alternatives have been discussed and questions answered. Patient agrees to proceed with procedure.
--- NOTE | 2022-12-31 11:48 | PM.IMHP ---
H&P: HPI History of Present Illness Date/Time: 12/31/22 11:48 Chief Complaint: umbilical hernia Narrative: 22 yo woman presents for umbilical hernia repair at time of tubal ligation. She denies any changes since last seen in office. Review of Systems Review of Systems: All systems reviewed & are unremarkable except as noted in HPI and below Constitutional: Constitutional: Denies chills, Denies fever(s), Denies headache(s) and Denies weight loss Eyes: Eyes: Denies change in vision ENT: Denies dizziness, Denies headache(s), Denies neck mass and Denies throat swelling Cardiovascular: Cardiovascular: Denies chest pain, Denies lightheadedness and Denies dyspnea Respiratory: Respiratory: Denies cough, Denies dyspnea and Denies wheezing Gastrointestinal: Gastrointestinal: Denies abdominal pain, Denies change in bowel habits, Denies nausea and Denies vomiting Genitourinary: Genitourinary: Denies hematuria and Denies dysuria Musculoskeletal: Musculoskeletal: Reports as per HPI Integumentary/Breasts: Skin/Breast: Reports as per HPI Neurologic: Denies dizziness and Denies headache(s) Allergic/Immunologic: Allergic/Immunologic: Denies throat swelling and Denies wheezing [facility] Past Medical History Medical History (Updated 12/31/22 @ 08:27 by Jaron Denny DO) ADHD Anemia Anxiety Bacterial vaginosis in Cephalopelvic disproportion macrosomia Generalized anxiety disorder Glucose tolerance test abnormal Normal 3 hour glucose tolerance test Heterozygous MTHFR mutation C677T Maternal varicella, non-immune Obesity induced hypertension PTSD (post-traumatic stress disorder) Rubella non-immune status, antepartum Suppression of menstruation Surgical History Surgical History Delivery by section (06/02/21) primary c/s due to gestational HTN x2 on 05/2021 & 10/2022 Family History Family History Grandparent High cholesterol Other Diabetes mellitus Hypertension Social History Social History Smoking status: Never smoker Second hand tobacco smoke exposure: No Alcohol intake: never Substance use: never Substance use type: does not use Lack of Transportation: No Lack of Food: Never True Current Housing: I Have Housing Concerned About Future Housing: No Difficulty Paying Gas/Electric Bills: No Difficulty Paying for Meds: No Currently Unemployed: YES Education: High School Diploma/GED Difficulty w/ Childcare or Family Care: No Living arrangements: with family Additional living arrangements comments: single Occupation/Education: unemployed Additional occupation/education comments: stay at home mom Gender identity (if verbalized by the patient): Female Sexual Orientation (if Verbalized by the Patient): Straight or Heterosexual Spiritual care concerns: No Agree to blood products: Yes Meds Home Medications and Allergies Home Medications Medication Instructions Recorded Confirmed Type No Home Medications 12/19/22 12/31/22 History Allergies Allergy/AdvReac Type Severity Reaction Status Date / Time No Known Allergies Allergy Verified 12/31/22 10:12 Vital Signs Vital Signs - 24 hr 12/31/22 10:05 Temperature 36.1 C L Pulse Rate 76 Respiratory Rate 16 Blood Pressure 118/69 Pulse Oximetry 100 Oxygen Delivery Room Air Exam Const: General: no acute distress and alert Orientation/consciousness: patient oriented x3 HENMT: Head: normocephalic and atraumatic Ears: hearing grossly normal bilaterally Face/Nose/Sinus: Normal nares present Mouth: Yes Normal oral and palatal mucosa present Eyes: Periorbital: periorbital findings normal Sclera: sclerae normal EOM: EOMs intact bilaterally Neck: Neck: normal visual inspection, no lympha
[2022-12-31] MEDS: ceFAZolin 2 GM/D5W 50 ML 2 GM/50 ML BAG IVPB (11:59)
--- NOTE | 2022-12-31 12:24 | W.PM.PROC2 ---
Procedure Note - Detailed Date of Procedure 12/31/22 Pre-op Diagnosis umbilical hernia, sterilization Post-op Diagnosis Same Procedure Performed Laparoscopic tubal ligation via silastic bands Surgeon Duran Lawrence MD Anesthesia General Indications a 22-year-old female desires permanent sterilization and has a a umbilical hernia Findings and umbilical hernia was seen. The uterus was status post section. Description of Procedure Patient was prepped draped in the normal sterile fashion placed in the dorsal lithotomy position. Under excellent endotracheal anesthesia weighted speculum placed in posterior fornix vagina. Anterior lip of the cervix grasped with single-tooth tenaculum. Shipley's cannula inserted attached to the single-tooth to be used later for uterine manipulation. After emptying the bladder of clear urine the weighted speculum was removed. Gloves were changed. An infraumbilical incision made Veress needle passed in the abdomen. Abdomen filled with CO2 gas 15 mercury. The 5mm trocar advanced under direct visualization using the scope and no injury seen. Patient placed in Trendelenburg and a suprapubic incision made. The trocar advanced under direct visualization assuring no injury. The right fallopian tube was grasped in midportion and a good knuckle of tube formed with the tubal ring. This was repeated on the contralateral tube the portion with excellent blanching. For documentation the taken. Changes consistent with previous were noted. The lower site removed. Gas from the abdomen. And Dr. Drew argueta went from there to repair the hernia. Blood loss was 5cc to this point there were no immediate complications Estimated Blood Loss 5 Drains No Packing No Pathology None sent Complications No immediate complications Condition Stable Disposition No change
[2022-12-31] MEDS: BUPIVACAINE/EPINEPHRINE 0.25% 50 ML VIAL 30 ML INFILTRATE (12:35)
--- NOTE | 2022-12-31 13:14 | W.PM.PROC2 ---
Procedure Note - Detailed Date of Procedure 12/31/22 Pre-op Diagnosis umbilical hernia, sterilization Post-op Diagnosis Same Procedure Performed Open 2cm umbilical hernia repair with 6.[address] hernia patch Surgeon Warren Paredes, DO Anesthesia General and Local (0.5% bupivacaine with epinephrine) Indications This is a 22-year-old woman who presented with a painful bulge at her umbilicus that she noticed within the last couple months. She recently had a CT of her abdomen and pelvis which showed evidence of an umbilical hernia containing fat. Discussions were made with the patient about treatment options and decision was made to proceed with umbilical hernia repair with possible mesh. The patient wished to have this surgery coordinated with a laparoscopic tubal ligation. Surgery was coordinated with OBGYN for both procedures to be done at the same time. Findings Umbilical hernia repair was performed. The patient had evidence of a 2 cm umbilical hernia containing preperitoneal fat and omentum. The fascia was cleared around the hernia defect and a preperitoneal plane was created for mesh placement. No specimens were obtained for pathology. A 6.[address] hernia patch was placed within the preperitoneal pocket and secured with the fascial closure using 0 Ethibond [id number] sutures. Description of Procedure Procedure as well as risks, benefits, and alternatives were discussed with the patient. Written consent was obtained and placed in chart prior to procedure. Patient was brought back to surgical suite. She was placed supine on operating table. She was then intubated by Anesthesia Department. Her abdomen was prepped and draped in sterile fashion using chlorhexidine prep. Please refer to Dr. Greg Lawrence's operative report for his portion of the procedure. 0.5% bupivacaine with epinephrine was infiltrated locally around the operative area. A 4 cm curvilinear incision was made just inferior to the umbilicus using a 15 blade scalpel. Electrocautery was used for hemostasis and for dissection down through the subcutaneous fat. Hernia sac was encountered and this was carefully freed up from surrounding subcutaneous fat using electrocautery. The hernia sac was freed up all the way down to the level of the fascia, and then it was transected using electrocautery. The hernia sac was excised and discarded. The umbilical stalk was then lifted off of the fascia with electrocautery. The hernia defect was then measured. This was measuring approximately 20 mm. The decision was made to use a 6.[address] patch. The peritoneum was cleared under the fascia circumferentially around the hernia using blunt dissection and electrocautery. Once a wide enough pocket was created for the mesh, the mesh was then placed within this preperitoneal pocket and laid out flat centered on the hernia defect. The mesh appeared to be sitting in proper position. The mesh was then secured with the fascial closure using 0 Ethibond [id number] sutures. A total of 3 sutures were placed transversely to bring the fascia together to close the hernia defect over the mesh. The repair was inspected and appeared secure. 0.5% bupivacaine with epinephrine was infiltrated around the fascia and subcutaneous space. The umbilical stalk was then reapproximated to the fascia using a 3 0 Vicryl simple interrupted suture. The deep dermis was reapproximated using 3 0 Vicryl simple interrupted sutures, and then the skin was approximated using 4 Monocryl running subcuticular suture. Exofin glue was then applied on top. The patient was then awakened from anesthesia, extubated, and transferred to recovery. Implants 6.[address] hernia patch Estimated Blood Loss 5 Complications No immediate complications Condition Stable Disposition Same day [facility] Billing Surgery - Charge Forward: Surgery Billing
[2022-12-31] MEDS: fentaNYL CITRATE INJ (*CRX) 100 MCG/2 ML VIAL 25 MCG IV PUSH ×8 (13:18→14:05)
[2022-12-31] MEDS: HYDROmorphone HCL INJ (*CRX) 1 MG/ML SYR 0.5 MG IV PUSH ×4 (14:25→15:42)
[2022-12-31] MEDS: ONDANSETRON INJ 4 MG/2 ML VIAL IV PUSH (15:16)
[2022-12-31] MEDS: oxyCODONE HCL (*CRX) 5 MG TAB IR PO (15:45)
== END 2022-12-31 16:33 | disposition home or self-care (01) ==
PROVIDERS: Obstetrics & Gynecology; Visit Provider Surgery
PROC: (CPT 49591; principal; 2022-12-31 12:00)
PROC: (CPT 58671; 2022-12-31 12:00)
DX: Z30.2 Encounter for sterilization (principal); K42.9 Umbilical hernia without obstruction or gangrene; E66.9 Obesity, unspecified; Z68.34 Body mass index [BMI] 34.0-34.9, adult
CPT/HCPCS: 49591; 58671; A4264; A9270; C1781; J0690; J1100; J1170; J1885; J2250; J2405; J2704; J2710; J3010; J7120

== ENCOUNTER 2024-06-20 11:06 | Emergency (ER) | payer OTHER, SELFPAY ==
[2024-06-20 11:23] VITALS: BP 152/100; PULSE 100; RESP 20; TEMP 36.9; O2SAT 98
--- NOTE | 2024-06-20 12:10 | ED.EAR ---
HPI - Ear Problem General Chief complaint: Ear Stated complaint: right ear pain Time Seen by Provider: 06/20/24 11:42 History of Present Illness HPI Narrative: Patient is a 23-year-old female who presents ER with right ear pain. Began this morning. Associated with some throbbing headache that is been ongoing for a couple of days. Muffled hearing. No known sick contacts. No recent hot tub exposure. Related Data Allergies Allergy/AdvReac Type Severity Reaction Status Date / Time No Known Allergies Allergy Verified 06/20/24 11:25 Review of Systems Constitutional: Constitutional: Denies chills, Denies fatigue and Denies fever(s) ENT: Denies nasal congestion and Denies sore throat Comments: ear pain PMFSH Past Medical History Medical History ADHD Anemia Anxiety Bacterial vaginosis in Cephalopelvic disproportion macrosomia Generalized anxiety disorder Glucose tolerance test abnormal Normal 3 hour glucose tolerance test Heterozygous MTHFR mutation C677T Maternal varicella, non-immune Obesity induced hypertension PTSD (post-traumatic stress disorder) Rubella non-immune status, antepartum Suppression of menstruation Surgical History Surgical History Delivery by section (06/02/21) primary c/s due to gestational HTN x2 on 05/2021 & 10/2022 H/O umbilical hernia repair w mesh on 12/31/22 Family History Family History Grandparent High cholesterol Other Diabetes mellitus Hypertension Social History Social History Smoking status: Never smoker Second hand tobacco smoke exposure: No Alcohol intake: never Substance use: never Substance use type: does not use Lack of Transportation: No Lack of Food: Never True Current Housing: I Have Housing Concerned About Future Housing: No Difficulty Paying Gas/Electric Bills: No Difficulty Paying for Meds: No Currently Unemployed: YES Education: High School Diploma/GED Difficulty w/ Childcare or Family Care: No Living arrangements: with family Additional living arrangements comments: single Occupation/Education: unemployed Additional occupation/education comments: stay at home mom Gender identity (if verbalized by the patient): Female Sexual Orientation (if Verbalized by the Patient): Straight or Heterosexual Spiritual care concerns: No Agree to blood products: Yes Exam Narrative: GENERAL: Well-appearing, well-nourished, and in no acute distress. HEAD: Normocephalic, atraumatic. ENT: Mucous membranes moist. Bulging erythematous tympanic membrane on the right side, ear canal free of cerumen and nonedematous. Normal left ear canal and TM. NEURO: Alert and oriented x3. PSYCH: Normal mood and affect. Course Course Emergency Course: d/c with abx and norco Vital Signs Vital signs: Vital Signs Temperature 98.5 F 06/20/24 11:23 Pulse Rate 100 06/20/24 11:23 Respiratory Rate 06/20/24 11:23 Blood Pressure 152/100 H 06/20/24 11:23 Pulse Oximetry 98 06/20/24 11:23 Temperature 98.5 F 06/20/24 11:23 Pulse Rate 100 06/20/24 11:23 Respiratory Rate 06/20/24 11:23 Blood Pressure 152/100 H 06/20/24 11:23 Pulse Oximetry 98 06/20/24 11:23 Medical Decision Making Vital Signs Vital Signs: Vital Signs Temperature 98.5 F 06/20/24 11:23 Pulse Rate 100 06/20/24 11:23 Respiratory Rate 06/20/24 11:23 Blood Pressure 152/100 H 06/20/24 11:23 Pulse Oximetry 98 06/20/24 11:23 Temperature 98.5 F 06/20/24 11:23 Pulse Rate 100 06/20/24 11:23 Respiratory Rate 06/20/24 11:23 Blood Pressure 152/100 H 06/20/24 11:23 Pulse Oximetry 98 06/20/24 11:23 Discharge Plan Discharg
== END 2024-06-20 12:37 | disposition home or self-care (01) ==
PROVIDERS: Emergency Provider Emergency Medicine
DX: H66.90 Otitis media, unspecified, unspecified ear (principal)
CPT/HCPCS: 99283

== ENCOUNTER 2024-08-30 13:32 | Emergency (ER) | payer OTHER, SELFPAY ==
--- NOTE | ~2024-08-30 | XR_ITS ---
XR clavicle RT DATE: 08/30/2024 15:02 INDICATION: Right clavicle and shoulder pain; no injury. TECHNIQUE: AP and angled AP views of right clavicle COMPARISON: None FINDINGS: No fracture, dislocation, periosteal reaction or bone destruction. Normal alignment at the right sternoclavicular and acromioclavicular and glenohumeral joints. IMPRESSION: Negative Reviewed, dictated and finalized at location A. NE ADVERTISING ANALYST IMPRESSION: Negative
--- NOTE | ~2024-08-30 | XR_ITS ---
XR shoulder RT min 2V DATE: 08/30/2024 15:02 INDICATION: Right shoulder and clavicular pain. No injury. TECHNIQUE: 4 views COMPARISON: None FINDINGS: No fracture or dislocation, periosteal reaction or bone destruction or abnormal soft tissue calcification. Normal alignment and preservation of joint spaces at the acromioclavicular and glenoh umeral joints. IMPRESSION: Negative Reviewed, dictated and finalized at location A. Y FABRICATION SUPERVISOR IMPRESSION: Negative
[2024-08-30 13:48] VITALS: BP 126/70; PULSE 100; RESP 17; TEMP 36.4; O2SAT 99
--- NOTE | 2024-08-30 14:43 | PC.NURSE ---
Pt c/o right shoulder pain for 2 weeks, range of motion wnl, sensation wnl, veterinary pharmacologist strong. No edema or tenderness on palpation noted.
--- NOTE | 2024-08-30 14:52 | ED.UPPEXIN ---
HPI - Extremity Injury (Upper) General Chief Complaint: Extremity Injury, Upper Stated Complaint: R shoulder pain Time Seen by Provider: 08/30/24 14:34 History of Present Illness HPI narrative: Patient is a 23-year-old female who presents to the ER with right shoulder pain. She reports she has dislocated her right shoulder before but has able to pop it back in myself. Patient reports she does not remember injuring her right shoulder but about 2 weeks ago she felt like it dislocated. She endorses numbness and tingling in her right hand, and intermittent stabbing pain in her right shoulder. Patient also endorses pain that radiates towards her clavicle. Patient reports she has had history of C-sections, hernia repair, and tubal ligation. She denies any shortness of breath, back pain, chest pain, redness or swelling. Related Data Allergies Allergy/AdvReac Type Severity Reaction Status Date / Time No Known Allergies Allergy Verified 06/20/24 11:25 Review of Systems Review of Systems: All systems reviewed & are unremarkable except as noted in HPI and below PMFSH Past Medical History Medical History ADHD Anemia Anxiety Bacterial vaginosis in Cephalopelvic disproportion macrosomia Generalized anxiety disorder Glucose tolerance test abnormal Normal 3 hour glucose tolerance test Heterozygous MTHFR mutation C677T Maternal varicella, non-immune Obesity induced hypertension PTSD (post-traumatic stress disorder) Rubella non-immune status, antepartum Suppression of menstruation Surgical History Surgical History Delivery by section (06/02/21) primary c/s due to gestational HTN x2 on 05/2021 & 10/2022 H/O umbilical hernia repair w mesh on 12/31/22 Family History Family History Grandparent High cholesterol Other Diabetes mellitus Hypertension Social History Social History Smoking status: Never smoker Second hand tobacco smoke exposure: No Alcohol intake: never Substance use: never Substance use type: does not use Lack of Transportation: No Lack of Food: Never True Current Housing: I Have Housing Concerned About Future Housing: No Difficulty Paying Gas/Electric Bills: No Difficulty Paying for Meds: No Currently Unemployed: YES Education: High School Diploma/GED Difficulty w/ Childcare or Family Care: No Living arrangements: with family Additional living arrangements comments: single Occupation/Education: unemployed Additional occupation/education comments: stay at home mom Gender identity (if verbalized by the patient): Female Sexual Orientation (if Verbalized by the Patient): Straight or Heterosexual Spiritual care concerns: No Agree to blood products: Yes Exam Narrative: GENERAL: Well appearing, well-nourished, non-toxic, in no acute distress. HEAD: Normocephalic, atraumatic. NECK: Supple. No adenopathy, no masses. RESPIRATORY: Airway patent, respirations nonlabored. Clear to auscultation bilaterally, no rales, rhonchi, wheezing. CARDIOVASCULAR: Regular rate and rhythm without murmurs, rubs, or gallops. Peripheral pulses 2+ and equal bilaterally. ABDOMINAL: Soft, nontender, nondistended, no hepatosplenomegaly. Normoactive BS. MUSCULOSKELETAL: Moves all extremities. Strength/ROM intact without gross deformities. Endorses increased pain with manipulation, but not with palpation. SKIN: Warm, dry, normal color. No rashes. NEURO: A&O X3. Speech clear. Cranial nerves II-XII grossly intact. Steady gait. No ataxic movements. PSYCHIATRIC: Appropriate mood and affect. Normal interaction. Course Vital Signs Vital signs: Vital Signs Temperature 36.4 C 08/30/24 13:48 Pulse Rate 100 08/30/24 13:48 Respiratory Rate 17 08/30/24 13:48 Blood Pressure 126/70 08/30/24 13:48 Pulse Oximetry 99 08/30/24 13:48 Oxygen Delivery Room Air 08/30/24 13:48 Temperature 36.4 C 08/30/24 13:48 Pulse Rate 100 08/30/24 13:48 Respiratory Rate 17 08/30/24 13:48 Blood Pressure 126/70 08/30/24 13:48 Pulse Oximetry 99 08/30/24 13:48 Oxygen Delivery Room Air 08/30/24 13:48 MDM - Extremity Injury (Upper) MDM Narrative Medical decision making narrative: Patient is a 23-year-old female who presents to the ER with right shoulder pain. She reports she has dislocated her right shoulder before but has able to pop it back in myself. Patient reports she does not remember injuring her right shoulder but about 2 weeks ago she felt like it dislocated. She endorses numbness and tingling in her right hand, and intermittent stabbing pain in her right shoulder. Patient reports she has had history of C-sections, hernia repair, and tubal ligation. She denies any shortness of breath, back pain, chest pain, redness or swelling. Labs Ordered: None needed Imaging Ordered: R shoulder x-ray, R clavicle x-ray Results: Negative x-rays with no acute abnormalities Diagnosis: R shoulder strain/sprain Patient Education/Shared MDM: Results shared with the patient and her . Patient will be discharged on muscle relaxants and anti inflammatory medication. She should follow-up with orthopedics if her pain does not improve in the next week. Patient and her are in agreement and verbalized understanding of plan. Differential Diagnosis Differential diagnosis: Likely dislocation of shoulder, fracture of humerus and fracture of clavicle Imaging Data Attestation: I personally reviewed and interpreted this imaging study as follows: Radiologist's impression: Impressions Clavicle X-Ray 08/30/24 15:09 IMPRESSION: Negative Shoulder X-Ray 08/30/24 15:09 IMPRESSION: Negative Discharge Plan Discharge Clinical Impression: Sprain of right shoulder joint Patient Disposition: Home, Self-Care Condition: Stable Instructions: Antibiotic Form, Shoulder Sprain (ED), How to Use a Sling (ED) Prescriptions: No Action amoxicillin-pot clavulanate 875-125 mg tablet 1 tablet PO Q12H Qty: 14 0RF hydrocodone-acetaminophen 5-325 mg tablet 1 tablet PO Q6H PRN (Reason: pain) Qty: 10 0RF Follow-up/Referrals: PHYSICIAN,RESIDENTIAL FINISH CARPENTER [Primary Care Provider] -
[2024-08-30] MEDS: KETOROLAC (*BKC) 60 MG/2 ML VIAL IM (15:26)
== END 2024-08-30 15:42 | disposition home or self-care (01) ==
PROVIDERS: Emergency Provider Registered Nurse
DX: S43.401A Unspecified sprain of right shoulder joint, initial encounter (principal); E66.9 Obesity, unspecified; Z68.41 Body mass index [BMI] 40.0-44.9, adult; X58.XXXA Exposure to other specified factors, initial encounter
CPT/HCPCS: 73000; 73030; 96372; 99283; J1885

== ENCOUNTER 2025-01-07 12:56 | Emergency (ER) | payer OTHER, SELFPAY ==
[2025-01-07 12:57] VITALS: BP 136/72; PULSE 100; RESP 18; TEMP 36.6; O2SAT 100
--- OUTSIDE RECORDS SUMMARY | 2025-01-07 13:09 | XMS_ITS | Referral Summary ---
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 Immunizations Immunization Administration Dates Next Due DTaP 5 Pertussis 03/25/2007, 3,04/24/2002, 002,2001 HPV9 12/17/2019,06/29/2019,04/27/2019 Hep A, Unspecified 06/08/2010,01/14/2008, 007 Hep B, Unspecified 06/08/2010, 3,10/31/2002, 002 HiB 02/01/2003, 3,02/27/2002, 002 IPV 03/25/2007, 3,02/27/2002, 002 MMR 06/08/2010,03/25/2007,11/02/2002 Meningococcal ACWY, Unspecified 11/12/2012 Meningococcal Conjugate (Menveo) 04/27/2019 Pneumococcal Conjugate, Unspecified 01/06,04/24/2002,02/27/2002, 002 Tdap 11/12/2012 Varicella 06/08/2010,03/25/2007,11/02/2002 Social History Tobacco Use Types Packs/Day Years Used Date Smoking Tobacco: Never Assessed Personal Safety Answer Date Recorded Getting School Help Needed Not on file 12/21 Comments Unknown Sex and Gender Information Value Date Recorded Sex Assigned at Not on file 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 Gender Identity Not on file Sexual Orientation Not on file Last Filed Vital Signs Vital Sign Reading Time Taken Comments Blood Pressure 120/60 04/27/2019 2:09 PM CDT Pulse - - Temperature 37 C (98.6 F) 12/17/2019 2:35 PM CDT Respiratory Rate - - Oxygen Saturation - - Inhaled Oxygen Concentration - - Weight 88 kg (194 lb) 12/17/2019 2:35 PM CDT Height 152.4 cm (5') 04/27/2019 2:09 PM CDT Body Mass Index - - Plan of Treatment Not on file Insurance [employer] Member Subscriber Plan / Payer (Ef fective 2019-Present) Name:Radha Payne Mm Relation to Subscriber:Child Name:KERRYCLAUS Date of :1973 (Home) Address: [address] [place] [address] Payer ID:[id number] (NAIC) Type: [employer] Address: [facility] [id number] [facility] [place] YOUTHCARE PLAN Care Teams Consulting Solution Manager Relationship Specialty Start Date End Date Rad Gomez MD [address] [place] [address] PCP - General 05/02/16
--- OUTSIDE RECORDS SUMMARY | 2025-01-07 13:09 | XMS_ITS | Clinical Summary ---
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
--- OUTSIDE RECORDS SUMMARY | 2025-01-07 13:09 | XMS_ITS | Clinical Summary ---
Author Organization [facility] Address [address] [place] [address] Care Team Providers Care Community Health Promoter Name Role Phone Carroll Win MD Primary Care Provider [phone] Vee Anthony DO Unavailable [phone] Source Comments [facility],non-owned Affiliates and Associated Physician Practices is amultiple site organization consisting of ambulatory clinics and hospital sitesin [place], [place], [place] and [place]. This disclosure is being madepursuant to the Care Everywhere program and may not contain all information available regarding this patient. Last updated 18.[facility] [employer] Allergies No known active allergies Active Problems Problem Noted Date Diagnosed Date LGA (large for gestational a ge) fetus affecting management of mother 05/12/2021 Overview (05/22/2021): 03/25/21 1 hr GCT: 149 04/07/21: 3hr GTT: 80,123,131,111 Blood sugar checks: 05/16-05/[address] Hopkins r/t LGA <97% with perimeters of fastings (<90) and 1 hour post prandials (<130) x 5 days. 05/19: FBS 77, 94 before lunch(1:48pm); 85 before dinner (6.27pm) ; 119 after dinner (8:34pm); 1:12am 121 (overnight) 05/18: 128 (12:54am), 92 (11:35am), 87 (6:05pm), 120 (7:35pm) 05/17: 113 (3:50am); 86 (11:38am), 93 (5:39pm); 78 (9:36pm); 137 (10:55pm)HS. 810: 113 (12:09am); 74 (12:47pm)before lunch; 132 (4:24pm)PP lunch; 123 (8:10pm); 121 (11:21pm)HS. 8/9: 78 (12:46pm) before lunch (? FBS); 106 (3:45pm) PP lunch; 99 (8:41pm); 92 (10:55pm)HS. Obesity (BMI 35.0-39.9 without comorbidity) 03/2021 Social History Tobacco Use Types Packs/Day Years Used Date Smoking Tobacco: Never Assessed Sex and Gender Information Value Date Recorded Sex Assigned at Not on file Gender Identity Not on file Sexual Orientation Not on file Plan of Treatment Health Maintenance Due Date Last Done Comments PAP SMEAR 2001 HIV SCREENING 2016 HPV VACCINE (1 - 3-dose series) 2016 CHLAMYDIA/GONORRHEA SCREENING 2017 MENINGOCOCCAL (Group B) VACC INE SHARED DECISION-MAKING (1 of 2 - Standard) 2017 HEPATITIS C SCREENING 10/26/2019 DTAP/TDAP/TD VACCINES (1 - Tdap) 2020 HEPATITIS B VACCINE (1 of 3 - 19+ 3-dose series) 2020 COVID-19 VACCINE (1 - 2023-2 5 season) 2024 INFLUENZA VACCINE (#1) 2024 DEPRESSION SCREENING 10/07/2024 ZOSTER VACCINE (1 of 2) 2051 HIB VACCINE Aged Out No longer eligi ble based on patient's age to complete this topic MENINGOCOCCAL GROUPS A/C/Y/W VACCINE Aged Out No longer eligible b ased on patient's age to complete this topic PNEUMOCOCCAL VACCINE Aged Out No long er eligible based on patient's age to complete this topic Care Teams Community Health Promoter Relationship Specialty Start Date End Date Carroll Win MD [address] [place] [phone] PCP - General 06/20/21 Vee Anthony DO [address] [place] [address] PCP - Attributed-[place] Medicaid [facility] 10/07/22
--- OUTSIDE RECORDS SUMMARY | 2025-01-07 13:43 | XMS_ITS | Referral Summary ---
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 [id number] [facility] [place] YOUTHCARE PLAN Care Teams Care Transport Nurse Relationship Specialty Start Date End Date Rad Gomez MD [address] [place] [address] PCP - General 05/02/16
--- OUTSIDE RECORDS SUMMARY | 2025-01-07 13:43 | XMS_ITS | Clinical Summary ---
Author Organization [facility] Address [address] [place] [address] Care Team Providers Care Cable Installation Technician Name Role Phone Carroll Win MD Primary Care Provider [phone] Vee Anthony DO Unavailable [phone] Source Comments [facility],non-owned Affiliates and Associated Physician Practices is amultiple site organization consisting of ambulatory clinics and hospital sitesin [place], [place], [place] and [place]. This disclosure is being madepursuant to the Care Everywhere program and may not contain all information available regarding this patient. Last updated 18.[facility] [email or web address] Allergies No known active allergies Active Problems [...] age to complete this topic Care Teams Cable Installation Technician Relationship Specialty Start Date End Date Carroll Win MD [address] [place] [phone] PCP - General 06/20/21 Vee Anthony DO [address] [place] [address] PCP - Attributed-[place] Medicaid [facility] 10/07/22
--- OUTSIDE RECORDS SUMMARY | 2025-01-07 13:43 | XMS_ITS | Clinical Summary ---
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
--- NOTE | 2025-01-07 14:13 | ED.GENADULT ---
HPI - General Adult General Chief complaint: Ear Stated complaint: Ear/throat pain-left eye pain Time Seen by Provider: 01/07/25 13:03 History of Present Illness HPI narrative: Patient is a 24-year-old female who presents ER with multiple complaints. Right ear pain and throat pain associated with sinus congestion over last 2 days. Developed left eye redness today as well as foreign body sensation. No blurred vision or flashers or floaters. Denies trauma to the eye. No fevers or chills or sweats. No other sick contacts. Related Data Allergies Allergy/AdvReac Type Severity Reaction Status Date / Time No Known Allergies Allergy Verified 01/07/25 12:57 Review of Systems Constitutional: Constitutional: Reports no additional constitutional complaints Eyes: Eyes: Reports no additional eye complaints ENT: Reports system reviewed and no additional complaints, except as documented Respiratory: Respiratory: Reports no additional respiratory complaints [facility] Past Medical History Medical History ADHD Anemia Anxiety Bacterial vaginosis in Cephalopelvic disproportion macrosomia Generalized anxiety disorder Glucose tolerance test abnormal Normal 3 hour glucose tolerance test Heterozygous MTHFR mutation C677T Maternal varicella, non-immune Obesity induced hypertension PTSD (post-traumatic stress disorder) Rubella non-immune status, antepartum Suppression of menstruation Surgical History Surgical History Delivery by section (06/02/21) primary c/s due to gestational HTN x2 on 05/2021 & 10/2022 H/O umbilical hernia repair w mesh on 12/31/22 Family History Family History Grandparent High cholesterol Other Diabetes mellitus Hypertension Social History Social History Smoking status: Never smoker Second hand tobacco smoke exposure: No Alcohol intake: never Substance use: never Substance use type: does not use Lack of Transportation: No Lack of Food: Never True Current Housing: I Have Housing Concerned About Future Housing: No Difficulty Paying Gas/Electric Bills: No Difficulty Paying for Meds: No Currently Unemployed: YES Education: High School Diploma/GED Difficulty w/ Childcare or Family Care: No Living arrangements: with family Additional living arrangements comments: single Occupation/Education: unemployed Additional occupation/education comments: stay at home mom Gender identity (if verbalized by the patient): Female Sexual Orientation (if Verbalized by the Patient): Straight or Heterosexual Spiritual care concerns: No Agree to blood products: Yes Exam Narrative: GENERAL: Well-appearing, well-nourished, and in no acute distress. HEAD: Normocephalic, atraumatic. EYES: PERRL and EOMI. Left eye viewed with fluorescein staining and magnification. No foreign body or corneal abrasion. Conjunctiva injected and mucous observe. ENT: Mucous membranes moist. TMs normal bilaterally. Normal appearing posterior oropharynx. NECK: Supple. CHEST: Clear to auscultation. No respiratory distress. HEART: Regular rate and rhythm. Normal peripheral pulses. EXTREMITIES: Normal range of motion. No edema. NEURO: Alert and oriented x3. Course Course Emergency Course: Conjunctivitis, she will give topical antibiotics and artificial tears. Vital Signs Vital signs: Vital Signs Temperature 97.9 F 01/07/25 12:57 Pulse Rate 100 01/07/25 12:57 Respiratory Rate 18 01/07/25 12:57 Blood Pressure 136/72 01/07/25 12:57 Pulse Oximetry 100 01/07/25 12:57 Oxygen Delivery Room Air 01/07/25 12:57 Temperature 97.9 F 01/07/25 12:57 Pulse Rate 100 01/07/25 12:57 Respiratory Rate 18 01/07/25 12:57 Blood Pressure 136/72 01/07/25 12:57 Pulse Oximetry 100 01/07/25 12:57 Oxygen Delivery Room Air 01/07/25 12:57 Medical Decision Making Vital Signs Vital Signs: Vital Signs Temperature 97.9 F 01/07/25 12:57 Pulse Rate 100 01/07/25 12:57 Respiratory Rate 18 01/07/25 12:57 Blood Pressure 136/72 01/07/25 12:57 Pulse Oximetry 100 01/07/25 12:57 Oxygen Delivery Room Air 01/07/25 12:57 Temperature 97.9 F 01/07/25 12:57 Pulse Rate 100 01/07/25 12:57 Respiratory Rate 18 01/07/25 12:57 Blood Pressure 136/72 01/07/25 12:57 Pulse Oximetry 100 01/07/25 12:57 Oxygen Delivery Room Air 01/07/25 12:57 Lab Data Labs: Lab Results 01/07/25 Range/Units 14:13 Influenza A (RT-PCR) Negative (Negative) Influenza B (RT-PCR) Negative (Negative) RSV (RT-PCR) Negative (Negative) SARS-CoV-2 RNA (RT-PCR) Negative (Negative) Discharge Plan Discharge Clinical Impression: Conjunctivitis Patient Disposition: Home, Self-Care Condition: Stable Instructions: Conjunctivitis (ED) Additional Instructions: Return ER if cannot see, you have increased pain in your eye, or have additional concerns. Patient Language: Maldivian Prescriptions: New erythromycin 5 mg/gram (0.5 %) ointment 0.5 inch LEFT EYE QID Qty: 3.5 0RF Artificial Tears([id number]) Drops 2 drp LEFT EYE 4-8XD PRN (Reason: dry eye(s)) Qty: 15 0RF No Action cyclobenzaprine 5 mg tablet 5 mg PO TID PRN (Reason: muscle spasm) Qty: 10 0RF ibuprofen 600 mg tablet 600 mg PO TID Qty: 20 0RF amoxicillin-pot clavulanate 875-125 mg tablet 1 tablet PO Q12H Qty: 14 0RF hydrocodone-acetaminophen 5-325 mg tablet 1 tablet PO Q6H PRN (Reason: pain) Qty: 10 0RF Follow-up/Referrals: UNKNOWN,DOCTOR [Primary Care Provider] - 1 Week
[2025-01-07 14:57] LABS: Influenza A QL RT-PCR Negative (Negative); Influenza B QL RT-PCR Negative (Negative); RSV RNA, RT-PCR Negative (Negative); SARS-CoV-2 RNA PCR Negative (Negative)
== END 2025-01-07 15:12 | disposition home or self-care (01) ==
PROVIDERS: Emergency Provider Emergency Medicine
DX: H10.9 Unspecified conjunctivitis (principal); Z20.822 Contact with and (suspected) exposure to COVID-19
CPT/HCPCS: 87637; 99283

== ENCOUNTER 2025-05-21 00:35 | Emergency (ER) | payer OTHER, SELFPAY ==
[2025-05-21 00:42] VITALS: BP 122/78; PULSE 82; RESP 18; TEMP 36.6; O2SAT 100
--- OUTSIDE RECORDS SUMMARY | 2025-05-21 05:28 | XMS_ITS | Clinical Summary ---
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 Gender Identity Not on file Sexual Orientation [...] Plan of Treatment Not on file Insurance [employer] Member Subscriber Plan / Payer (Ef fective 2019-Present) Name:Radha Payne Mm Relation to Subscriber:Child Name:KERRYCLAUS Date of :1972 (Home) Address: [address] [place] [address] Payer ID:[id number] (NAIC) Type: [employer] Address: [facility] [phone] [facility] [place] [address] [address] PLAN Care Teams Chemical Lab Technician Relationship Specialty Start Date End Date Rad Gomez MD [address] [place] [address] PCP - General 05/02/16
== END 2025-05-21 06:12 | disposition left against medical advice (07) ==
DX: S29.9XXA Unspecified injury of thorax, initial encounter (principal)
CPT/HCPCS: 99199

== ENCOUNTER 2025-09-08 19:10 | Emergency (ER) | payer OTHER, SELFPAY ==
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
--- NOTE | ~2025-09-08 | XR_ITS ---
XR hip LT 2V w AP pelvis INDICATION: pain COMPARISON: None FINDINGS: The pelvis of the left hip demonstrate no acute fracture or dislocation. IMPRESSION: No acute fracture or dislocation. Reviewed, dictated and finalized at location S. ERTY MANAGER
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
[2025-09-08 19:45] VITALS: BP 122/90; PULSE 87; RESP 18; TEMP 36.7; O2SAT 100
[2025-09-08] MEDS: ACETAMINOPHEN 500 MG TABLET 1000 MG PO (19:55)
[2025-09-08] MEDS: KETOROLAC 30 MG/ML VIAL (*BKC) IM (19:56)
[2025-09-08] MEDS: diazePAM (*CRX) 5 MG TABLET PO (19:56)
[2025-09-08 20:27] LABS: BEDSIDEPREGUCG Negative (Negative)
[2025-09-08] MEDS: HYDROcodone/acetaminophen (*CRX) 5-325 MG TABLET 1 TAB PO (21:13)
[2025-09-08 21:40] VITALS: BP 128/78; PULSE 86; RESP 19; O2SAT 100
== END 2025-09-08 21:43 | disposition home or self-care (01) ==
PROVIDERS: Emergency Provider Student in an Organized Health Care Education/Training Program
DX: S32.10XA Unspecified fracture of sacrum, initial encounter for closed fracture (principal); M54.50 Low back pain, unspecified; M62.830 Muscle spasm of back; S80.02XA Contusion of left knee, initial encounter; V43.52XA Car driver injured in collision with other type car in traffic accident, initial encounter; F90.9 Attention-deficit hyperactivity disorder, unspecified type
CPT/HCPCS: 72131; 73502; 81025; 96372; 99284; A9270; J1885